=== PATIENT | female | born 1980 | race American Indian/Alaskan Native ===

== ENCOUNTER 2020-10-06 15:56 | Emergency (ER) | payer SELFPAY ==
--- NOTE | 2020-10-06 17:14 | Event Note ---
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 Further treatment and workup at subsequent clinical providers discretion. Patient/guardian urged not to elope from the ED as their condition may be serious if not clinically assessed and managed. Initial orders include: Lab
[2020-10-06 17:38] LABS: Alanine Aminotransferase 11 units/L (7-56); Albumin 3.5 g/dL (3.9-5); Blood Urea Nitrogen 5 mg/dL (7-17); Calcium 8.7 mg/dL (8.4-10.2); Hemolysis Index 61
[2020-10-06 17:48] LABS: Hematocrit 37.6 % (30.3-42.9); Hemoglobin 12.1 gm/dl (10.1-14.3); Mean Corpuscular HGB Conc 32 % (30-34); Mean Corpuscular Volume 86 fl (79-97); Platelet Count 309 K/mm3 (140-440); Red Blood Count 4.36 M/mm3 (3.65-5.03); Red Cell Distribution Width 15.4 % (13.2-15.2)
[2020-10-06 17:49] LABS: Basophils % (Auto) 0.5 % (0.0-1.8); Eosinophils % (Auto) 0.7 % (0.0-4.3); Lymphocytes # (Auto) 1.6 K/mm3 (1.2-5.4); Lymphocytes % (Auto) 19.5 % (13.4-35.0); Monocytes # (Auto) 0.6 K/mm3 (0.0-0.8)
[2020-10-06 17:50] LABS: BUN/Creatinine Ratio 10
[2020-10-06 17:50] LABS: Eosinophils # (Auto) 0.1 K/mm3 (0.0-0.4)
[2020-10-06 20:56] LABS: Bacteria,Urine 1+ /HPF (Negative); Bilirubin,Urine NEG (Negative); Blood,Urine NEG (Negative); Color,Urine Yellow (Yellow); Mucus,Urine FEW /HPF; Urobilinogen,Urine < 2.0 mg/dL (<2.0)
--- NOTE | 2020-10-06 22:30 | Emergency Department Report ---
HPI - General Chief Complaint: High BP Time Seen by Provider: 10/06/20 16:32 - HPI HPI: This is a 40-year-old female who presents to the emergency department with the complaint of hypertension while . Patient followed up with [facility] 2 weeks ago and was told that she was about 9 weeks at that time. She was given a follow-up appointment for today. When she went into the office she says that she was told that they do not see patients that are greater than 325 pounds. The patient says that she she got very upset and this is also when they checked her blood pressure in the office and it was found to be extremely elevated. She was told that it was "stroke level" and that she needs to go to the emergency department. When the patient came to the emergency department she [facility] and says that she waited there for a while before she was told that she needs to go back to the emergency department. The patient does have a history of hypertension for which she takes carvedilol 25 mg once per day. She also has a history of [id number] diabetes for which she takes Metformin 1000 mg twice daily. With this the patient is G3, P2. She denies any headache, fever, vision change, chest pain, shortness of breath, lower extremity swelling, abdominal or pelvic pain, vaginal bleeding, dysuria or discharge. ED Past Medical Hx - Past Medical History Previous Medical History?: Yes Hx Hypertension: Yes Hx Diabetes: Yes - Medications Home Medications: Home Medications Medication Instructions Recorded Confirmed Last Taken Type Nitrofurantoin [place]/M-Cryst 100 mg PO Q12HR #14 capsule 10/06/20 Unknown Rx [Macrobid CAP] ED Review of Systems ROS: Stated complaint: HIGH BLOOD PRESSURE Other details as noted in HPI Comment: All other systems reviewed and negative Constitutional: denies: chills, fever Eyes: denies: eye pain, vision change ENT: denies: ear pain, throat pain Respiratory: denies: cough, shortness of breath Cardiovascular: denies: chest pain, palpitations Gastrointestinal: denies: abdominal pain, vomiting Genitourinary: denies: dysuria, discharge Musculoskeletal: denies: back pain, arthralgia Skin: denies: rash, lesions Neurological: denies: headache, weakness Physical Exam - Physical Exam Vital Signs: Vital Signs 10/06/20 10/06/20 16:19 20:08 Temperature 97.8 F Pulse Rate 104 H 108 H Respiratory 18 20 Rate Blood Pressure 180/117 Blood Pressure 205/114 [Right] O2 Sat by Pulse 98 100 Oximetry Physical Exam: GENERAL: The patient is well-developed well-nourished. HENT: Normocephalic. Atraumatic. Patient has moist mucous membranes. EYES: Extraocular motions are intact. NECK: Supple. Trachea is midline. CHEST/LUNGS: Clear to auscultation. There is no respiratory distress noted. HEART/CARDIOVASCULAR: Regular. There is no tachycardia. There is no murmur. ABDOMEN: Abdomen is soft, nontender. Patient has normal bowel sounds. Morbidly obese habitus. SKIN: Skin is warm and dry. NEURO: The patient is awake, alert, and oriented. The patient is cooperative. The patient has no focal neurologic deficits. Normal speech. MUSCULOSKELETAL: There is no tenderness or deformity. There is no limitation range of motion. Pelvic: Deferred. ED Course Vital Signs 10/06/20 10/06/20 16:19 20:08 Temperature 97.8 F Pulse Rate 104 H 108 H Respiratory 18 20 Rate Blood Pressure 180/117 Blood Pressure 205/114 [Right] O2 Sat by Pulse 98 100 Oximetry - Reevaluation(s) Reevaluation #1: 10/06/20 23:32 After discussing the vital signs and laboratory results with the patient, as well as the plan for admission for blood pressure and diabetes control, the patient has decided to leave AGAINST MEDICAL ADVICE. She feels that the blood pressure is secondary to her frustration with how today has gone at the office of the TRANSPLANTER and the prolonged hospital evaluation. I discussed with the patient that the very elevated blood pressure levels, especially if they worsen, could lead to heart attack, stroke, loss of , or even permanent disability or . We also discussed that the hypertension and diabetes make her a very high risk . The patient is awake, alert, oriented and has a normal decision-making capacity. Despite understanding the risks of leaving AGAINST MEDICAL ADVICE, the patient has decided to leave AMA. She also understands that she can return to the emergency department at any time for reevaluation and should do so if she develops any chest pain, shortness of breat h, severe headache, weakness, or with any acute distress. I did a bedside ultrasound to look at the and there appears to be an intrauterine with a heart rate of 138 bpm and the fetus appears very active within the wound. The patient has been given a dose of Macrobid for her urinary tract infection and a dose of labetalol for the hypertension. - Consultations Consultation #1: 10/06/20 23:32 I spoke to the TRANSPLANTER on-call, Dr. Sandoval, who recommended admission for blood pressure control and optimization of the patient's hyperglycemia/diabetes. Since the patient is less than 20 weeks, and it is a nonviable currently, she is asked for the patient to be admitted to the hospitalist service and she is happy to consult. ED Medical Decision Making - Lab Data Result diagrams: 10/06/20 16:33 10/06/20 17:10 Lab Results 10/06/20 10/06/20 10/06/20 Range/Units 16:33 17:10 17:10 WBC 8.0 (4.5-11.0) K/mm3 RBC 4.36 (3.65-5.03) M/mm3 Hgb 12.1 (10.1-14.3) gm/dl Hct 37.6 (30.3-42.9) % MCV 86 (79-97) fl MCH 28 (28-32) pg MCHC 32 (30-34) % RDW 15.4 H (13.2-15.2) % Plt Count 309 (140-440) K/mm3 Lymph % (Auto) 19.5 (13.4-35.0) % [place] % (Auto) 7.0 (0.0-7.3) % Eos % (Auto) 0.7 (0.0-4.3) % Baso % (Auto) 0.5 (0.0-1.8) % Lymph # (Auto) 1.6 (1.2-5.4) K/mm3 [place] # (Auto) 0.6 (0.0-0.8) K/mm3 Eos # (Auto) 0.1 (0.0-0.4) K/mm3 Baso # (Auto) 0.0 (0.0-0.1) K/mm3 Seg Neutrophils % 72.3 H (40.0-70.0) % Seg Neutrophils # 5.8 (1.8-7.7) K/mm3 Sodium 132 L (137-145) mmol/L Potassium 4.3 (3.6-5.0) mmol/L Chloride 98.2 (98-107) mmol/L Carbon Dioxide 19 L (22-30) mmol/L Anion Gap 19 mmol/L BUN 5 L (7-17) mg/dL Creatinine 0.5 L (0.6-1.2) mg/dL Estimated GFR > 60 ml/min BUN/Creatinine Ratio 10 % Glucose 268 H (65-100) mg/dL Calcium 8.7 (8.4-10.2) mg/dL Total Bilirubin 0.40 (0.1-1.2) mg/dL AST 16 (5-40) units/L ALT 11 (7-56) units/L Alkaline Phosphatase 89 (35-129) units/L Total Protein 7.2 (6.3-8.2) g/dL Albumin 3.5 L (3.9-5) g/dL Albumin/Globulin Ratio 0.9 % HCG, Quant 09396 H (0-4) mIU/mL Urine Color (Yellow) Urine Turbidity (Clear) Urine pH (5.0-7.0) Ur Specific [place] (1.003-1.030) Urine Protein (Negative) mg/dL Urine Glucose (UA) (Negative) mg/dL Urine Ketones (Negative) mg/dL Urine Blood (Negative) Urine Nitrite (Negative) Urine Bilirubin (Negative) Urine Urobilinogen (<2.0) mg/dL Ur Leukocyte Esterase (Negative) Urine WBC (Auto) (0.0-6.0) /HPF Urine RBC (Auto) (0.0-6.0) /HPF U Epithel Cells (Auto) (0-13.0) /HPF Urine Bacteria (Auto) (Negative) /HPF Urine Mucus /HPF 10/06/20 Range/Units 20:30 WBC (4.5-11.0) K/mm3 RBC (3.65-5.03) M/mm3 Hgb (10.1-14.3) gm/dl Hct (30.3-42.9) % MCV (79-97) fl MCH (28-32) pg MCHC (30-34) % RDW (13.2-15.2) % Plt Count (140-440) K/mm3 Lymph % (Auto) (13.4-35.0) % Loving % (Auto) (0.0-7.3) % Eos % (Auto) (0.0-4.3) % Baso % (Auto) (0.0-1.8) % Lymph # (Auto) (1.2-5.4) K/mm3 Loving # (Auto) (0.0-0.8) K/mm3 Eos # (Auto) (0.0-0.4) K/mm3 Baso # (Auto) (0.0-0.1) K/mm3 Seg Neutrophils % (40.0-70.0) % Seg Neutrophils # (1.8-7.7) K/mm3 Sodium (137-145) mmol/L Potassium (3.6-5.0) mmol/L Chloride (98-107) mmol/L Carbon Dioxide (22-30) mmol/L Anion Gap mmol/L BUN (7-17) mg/dL Creatinine (0.6-1.2) mg/dL Estimated GFR ml/min BUN/Creatinine Ratio % Glucose (65-100) mg/dL Calcium (8.4-10.2) mg/dL Total Bilirubin (0.1-1.2) mg/dL AST (5-40) units/L ALT (7-56) units/L Alkaline Phosphatase (35-129) units/L Total Protein (6.3-8.2) g/dL Albumin (3.9-5) g/dL Albumin/Globulin Ratio % HCG, Quant (0-4) mIU/mL Urine Color Yellow (Yellow) Urine Turbidity Cloudy (Clear) Urine pH 6.0 (5.0-7.0) Ur Specific Mears 1.042 H (1.003-1.030) Urine Protein 30 mg/dl (Negative) mg/dL Urine Glucose (UA) >=500 (Negative) mg/dL Urine Ketones 80 (Negative) mg/dL Urine Blood Neg (Negative) Urine Nitrite Pos (Negative) Urine Bilirubin Neg (Negative) Urine Urobilinogen < 2.0 (<2.0) mg/dL Ur Leukocyte Esterase Mod (Negative) Urine WBC (Auto) 30.0 H (0.0-6.0) /HPF Urine RBC (Auto) 13.0 (0.0-6.0) /HPF U Epithel Cells (Auto) 28.0 H (0-13.0) /HPF Urine Bacteria (Auto) 1+ (Negative) /HPF Urine Mucus Few /HPF - Medical Decision Making This patient was sent in by [facility] after she was found to have a very elevated blood pressure during her visit this afternoon. The patient does have a history of hypertension and diabetes and is currently about 11 weeks . The patient's blood work shows some hyperglycemia without signs of diabetic ketoacidosis. There is no elevation in her anion gap. While there is some ketonuria, there is no proteinuria. The patient also has a mild urinary tract infection. I spoke to the TRANSPLANTER on-call, as per the consultation section, and the recommendation was for the patient to be admitted to the hospital for blood pressure control and optimization of her diabetes. However, the patient feels that the hypertension is so elevated secondary to her frustration with her visit to [facility] and her hospital course and that it will be better controlled if she goes home, calms down, and rests. As mentioned in the reevaluation section, the patient has decided to leave AGAINST MEDICAL ADVICE despite understanding the risks of doing so with her hypertensive urgency, hyperglycemia, and this high risk . Before the patient left, I did a bedside ultrasound that shows a live intrauterine with a heart rate of about 138. The patient was given a dose of labetalol and a dose of Macrobid. Despite the fact that the patient is leaving [place], I did give her some discharge instructions and a prescription for Macrobid to treat the urinary tract infection. She understands that she can return to the emergency department at any time for reevaluation or if she changes her mind regarding admission and further treatment, or with any acute distress. Critical Care Time: No Critical care attestation.: If time is entered above; I have spent that time in minutes in the direct care of this critically ill patient, excluding procedure time. ED Disposition Clinical Impression: Hypertension affecting in first trimester, Hyperglycemia Qualifiers: Weeks of gestation: 11 weeks Qualified Code(s): Z3A.11 - 11 weeks gestation of UTI (urinary tract infection) Qualifiers: Urinary tract infection type: acute cystitis Hematuria presence: without hematuria Qualified Code(s): N30.00 - Acute cystitis without hematuria Disposition: DC-07 LEFT AGAINST MED ADVICE Is pt being admited?: No Condition: Stable Instructions: Hyperglycemia, Urinary Tract Infection, Adult, Blood Glucose Monitoring, Adult, Hypertension During , Hypertension (ED) Additional Instructions: Please return to the emergency department immediately if you change your mind about admission and further evaluation/treatment. Try to stay away from foods that are high in sugar, carbohydrates and starches. Keep a blood sugar log. Try to stay away from foods that are high in salt and caffeinated products. Keep a blood pressure log. Prescriptions: Nitrofurantoin [place]/M-Cryst [Macrobid CAP] 100 mg PO Q12HR #14 capsule [address]errals: [facility] [Provider Group] - [facility]Provider [facility] - [facility] [Provider Group] - [facility] Forms: AMA Form Time of Disposition: 23:20
[2020-10-06] MEDS ORDERED: NITROFURANTOIN MONOHYD/M-CRYST 100 MG CAP PO ONE (23:17)
[2020-10-06 23:29] VITALS: BP 160/89
== END 2020-10-06 23:33 | disposition left against medical advice (07) ==
LOC: ED 15:56
DX: O24.419 Gestational diabetes mellitus in pregnancy, unspecified control (principal); O13.1 Gestational [pregnancy-induced] hypertension without significant proteinuria, first trimester; O23.41 Unspecified infection of urinary tract in pregnancy, first trimester; Z79.899 Other long term (current) drug therapy; Z3A.11 11 weeks gestation of pregnancy
CPT/HCPCS: 36415; 80053; 81001; 84702; 85025; 87086

== ENCOUNTER 2020-11-23 12:17 | Inpatient (IN) | payer MEDICAID ==
[2020-11-23] MEDS ORDERED: FAMOTIDINE 20 MG/2 ML INJ IV ONE ×2 (12:29→19:16)
[2020-11-23] MEDS ORDERED: METOCLOPRAMIDE 10 MG/2 ML INJ IV ONE (12:29)
[2020-11-23] MEDS ORDERED: BICITRA ORAL LIQD 30ML PO ONE (12:29)
[2020-11-23] MEDS ORDERED: LACTATED RINGERS 1,000 ML IV SCH ×3 (12:30→21:30)
[2020-11-23] MEDS ORDERED: ceFAZolin/Water 2 GM/20 ML 2 GM/20 ML SYRINGE IV NR (13:00)
[2020-11-23] MEDS ORDERED: OXYTOCIN DRIP 30 UNITS/500 ML BAG IV SCH ×2 (13:00→22:00)
[2020-11-23] MEDS ORDERED: MAGNESIUM SULFATE 4 GM/100 ML BAG IV ONE (13:46)
[2020-11-23] MEDS ORDERED: hydrALAZINE 20 MG/1 ML INJ IV ONE ×2 (13:46→17:19)
[2020-11-23] MEDS ORDERED: hydrALAZINE 20 MG/1 ML INJ ONE ×2 (13:50→17:19)
--- NOTE | 2020-11-23 13:53 | Ultrasound Report ---
Limited OB ultrasound INDICATION: Evaluate for heart tones, well-being FINDINGS: Clinical dates 37 weeks 5 days. No heart tone is identified. IMPRESSION: No heart tone is identified. Note: Patient's nurse tax analyst was present for the study. Signer Name: Darius Salmon MD Signed: 11/23/2020 1:49 PM Workstation Name: [id number]
[2020-11-23 14:36] LABS: Basophils % (Auto) 0.4 % (0.0-1.8); Eosinophils % (Auto) 0.4 % (0.0-4.3); Hematocrit 37.9 % (30.3-42.9); Hemoglobin 12.5 gm/dl (10.1-14.3); Lymphocytes # (Auto) 1.4 K/mm3 (1.2-5.4); Lymphocytes % (Auto) 19.7 % (13.4-35.0); Mean Corpuscular HGB Conc 33 % (30-34); Mean Corpuscular Volume 84 fl (79-97); Monocytes # (Auto) 0.5 K/mm3 (0.0-0.8); Monocytes % (Auto) 7.5 % (0.0-7.3); Platelet Count 319 K/mm3 (140-440); Red Cell Distribution Width 15.4 % (13.2-15.2)
[2020-11-23] MEDS: LACTATED RINGERS 1,000 ML IV SCH (14:37)
[2020-11-23 14:48] LABS: Alanine Aminotransferase 30 units/L (7-56); Albumin 3.8 g/dL (3.9-5); Blood Urea Nitrogen 5 mg/dL (7-17); Calcium 9.8 mg/dL (8.4-10.2); Hemolysis Index 84
[2020-11-23 14:55] LABS: BUN/Creatinine Ratio 13; Bilirubin,Direct < 0.2 mg/dL (0-0.2)
[2020-11-23] MEDS: MAGNESIUM SULFATE 40GM/1000ML 40 GM/1,000 ML BAG IV SCH (15:10)
[2020-11-23] MEDS ORDERED: DEXTROSE 50% IN WATER (25GM) 50 ML SYRINGE IV PRN (16:00)
[2020-11-23] MEDS ORDERED: INSULIN REGULAR, HUMAN 100 UNITS/1 ML SUB-Q SCH (16:00)
[2020-11-23 16:41] LABS: INR 0.96 (0.87-1.13); Partial Thromboplastin Time 26.2 Sec. (24.2-36.6)
[2020-11-23 17:39] LABS: Amphetamine Screen,Urine PRESUMPTIVE NEGATIVE; Benzodiazepines Screen,Urine PRESUMPTIVE NEGATIVE; Bilirubin,Urine NEG (Negative); Blood,Urine SM (Negative); Cannabinoid Screen,Urine PRESUMPTIVE NEGATIVE; Cocaine Screen,Urine PRESUMPTIVE NEGATIVE; Color,Urine Yellow (Yellow); Methadone Screen,Urine PRESUMPTIVE NEGATIVE; Mucus,Urine FEW /HPF; Opiate Screen,Urine PRESUMPTIVE NEGATIVE; Protein,Urine <15 mg/dL mg/dL (Negative); RBC,Urine < 1.0 /HPF (0.0-6.0); Urobilinogen,Urine < 2.0 mg/dL (<2.0); WBC,Urine < 1.0 /HPF (0.0-6.0)
[2020-11-23] MEDS ORDERED: INSULIN REGULAR, HUMAN 100 UNITS/1 ML IV ONE (18:42)
--- NOTE | 2020-11-23 18:54 | History and Physical Report ---
History of Present Illness Date of examination: 11/23/20 Date of admission: 11/23/20 12:17 Chief complaint: demise History of present illness: This is a 40-year-old female 3 para 2-0-0-2 who presented to the office for routine OB visit. During the visit patient stated perinatologist recommended delivery at [address] Vanegas was consulted and confirmed that patient needed to be delivered today due to noncompliance. On arrival to triage heart tones were unable to be clearly documented. Ultrasound was performed and confirmed demise cephalic position. Past History Past Medical History: hypertension, diabetes, other (Heart murmur. 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 denies: abnormal PAP smear Social history: full code. denies: smoking, alcohol abuse, prescription drug a buse, IV drug use - Obstetrical History Expected Date of Delivery: 12/09/20 Actual Gestation: 37 Week(s) 5 Day(s) : 3 Para: 2 Hx # Term Pregnancies: 2 Number of Living Children: 2 Medications and Allergies Allergies Allergy/AdvReac Type Severity Reaction Status Date / Time No Known Allergies Allergy Verified 11/23/20 12:51 Home Medications Medication Instructions Recorded Confirmed Last Taken Type Nitrofurantoin [place]/M-Cryst 100 mg PO Q12HR #14 capsule 10/06/20 Unknown Rx [Macrobid CAP] Active Meds: Active Medications Dextrose (Dextrose 50% In Water (25gm) 50 Ml Syringe) 50 ml IV Q30MIN PRN; Pro tocol PRN Reason: Hypoglycemia Oxytocin/Sodium Chloride (Pitocin/Ns 30 Unit/500ml) 30 units in 500 mls @ 0 mls/hr IV TITR ELDA; Protocol Cefazolin Sodium (Ancef/Sterile Water 2 Gm/20 Ml) 2 gm in 20 mls @ 80 mls/hr IV PREOP NR; Protocol Stop: 11/23/20 23:59 Lactated Ringer's (Lactated Ringers) 1,000 mls @ 125 mls/hr IV DIRECT ELDA Last Admin: 11/23/20 14:37 Dose: 125 mls/hr Documented by: Magnesium Sulfate (Magnesium Sulfate 40gm/1000ml) 40 gm in 1,000 mls @ 50 mls/hr IV DIRECT ELDA Last Admin: 11/23/20 15:10 Dose: 2 gm/hr, 50 mls/hr Documented by: Insulin Human Regular (Insulin Regular, Human 100 Units/1 Ml) 0 units SUB-Q Q6H ELDA; Protocol Labetalol HCl (Labetalol 100 Mg Tab) 300 mg PO BID ELDA Review of Systems All systems: negative - Vital Signs Vital signs: Vital Signs Temp Pulse Resp BP Pulse Ox 98.2 F 125 H 20 174/89 94 11/23/20 13:04 11/23/20 13:04 11/23/20 13:04 11/23/20 13:04 11/23/20 13:04 Temp Pulse Resp BP Pulse Ox 98.2 F 136 H 18 143/88 99 11/23/20 13:04 11/23/20 18:17 11/23/20 15:00 11/23/20 18:17 11/23/20 15:00 - Physical Exam Breasts: Positive: deferred Cardiovascular: Other (Tachycardia) Lungs: Positive: Normal air movement Abdomen: Positive: other (Obese) Genitourinary (Female): Positive: normal external genitalia, normal perenium Uterus: Positive: other (Unable to assess due to body habitus) Extremities: Positive: normal - Obstetrical Cervical Dilatation: 0 Cervical Effacement Percentage: 0 station: -4 per Darcie Irvin CNM patient could not tolerate exam when I attempte Results Result Diagrams: 11/23/20 13:30 11/23/20 13:30 Abnormal lab results 11/23/20 11/23/20 11/23/20 Range/Units 13:30 13:30 13:30 RDW 15.4 H (13.2-15.2) % [place] % (Auto) 7.5 H (0.0-7.3) % Seg Neutrophils % 72.0 H (40.0-70.0) % Sodium 128 L (137-145) mmol/L Chloride 92.3 L (98-107) mmol/L Carbon Dioxide 21 L (22-30) mmol/L BUN 5 L (7-17) mg/dL Creatinine 0.4 L (0.6-1.2) mg/dL Glucose 307 H (65-100) mg/dL Hemoglobin A1c 10.4 H (4-6) % Albumin 3.8 L (3.9-5) g/dL All other labs normal. Assessment and Plan - Patient Problems (1) 37 weeks gestation of Current Visit: Yes Status: Acute (2) Body mass index 50.0-59.9, adult Current Visit: Yes Status: Chronic (3) Diabetes type 2, uncontrolled Onset Date: ~11/23/20 Current Visit: Yes Status: Chronic (4) Essential hypertension affecting in third trimester Onset Date: ~11/23/20 Current Visit: Yes Status: Chronic (5) demise Onset Date: ~11/23/20 Current Visit: Yes Status: Acute (6) Noncompliant patient in third trimester Current Visit: Yes Status: Chronic (7) Previous section Onset Date: ~11/23/20 Current Visit: Yes Status: Chronic Plan to address problem: Options for delivery were discussed with patient. Limited data available for guidance concerning previous with unknown uetrine incision, unfavorable cervix and induction of labor. She was informed of possible risk of uterine rupture with trial of labor. She was also informed with unfavorable cervix, mechanical induction and Pitocin will be required and induction of labor may take several days to delivery and her risk would be further increased for possible uterine rupture with poor prognosis and possible for her. She's aware should uterine rupture occur she will require hysterectomy to save her life. Risk associated with delivery were discussed, including but not limited to, bleeding that may require blood transfusion, infection that may be life threatening, injury to adjacent organs specifically bowel or bladder that may require further surgeries, or major vascular injury. She was also informed that when she has had a delivery she may require repeat deliveries for all subsequent pregnancies. Questions were encouraged and answered, consents were reviewed and signed. Patient voiced understanding and desires to proceed with delivery.
[2020-11-23] MEDS ORDERED: MIDAZOLAM 2 MG/2 ML INJ ONE (19:07)
[2020-11-23] MEDS ORDERED: ONDANSETRON 4 MG/2 ML INJ ONE (19:07)
[2020-11-23] MEDS ORDERED: fentaNYL 100 MCG/2 ML INJ ONE (19:08)
--- NOTE | 2020-11-23 19:12 | Anesthesia Consultation ---
Anesthesia Consult and Med Hx Date of service: 11/23/20 - Airway Anesthetic Teeth Evaluation: Good ROM Head & Neck: Adequate Mental/Hyoid Distance: Adequate Mallampati Class: Class IV Intubation Access Assessment: Possibly Difficult - Pulmonary Exam CTA: Yes - Cardiac Exam Cardiac Exam: RRR - Pre-Operative Health Status ASA Pre-Surgery Classification: ASA3 Proposed Anesthetic Plan: Epidural, Spinal - Pulmonary Hx Smoking: No Hx Asthma: No Hx Sleep Apnea: No - Cardiovascular System Hx Hypertension: Yes Hx Heart Attack/AMI: No Hx Angina: No - Central Nervous System Hx Seizures: No Hx Psychiatric Problems: No - Gastrointestinal Hx Gastroesophageal Reflux Disease: No - Endocrine Hx Renal Disease: No Hx Insulin Dependent Diabetes: Yes (BG 300) Hx Hypothyroidism: No Hx Hyperthyroidism: No - Hematic Hx Anemia: No Hx Sickle Cell Disease: No - Other Systems Hx Alcohol Use: No Hx Obesity: Yes
[2020-11-23] MEDS ORDERED: ONDANSETRON 4 MG/2 ML INJ IV PRN (19:13)
[2020-11-23] MEDS ORDERED: diphenhydrAMINE 50 MG/ML VIAL IV PRN (19:13)
[2020-11-23] MEDS ORDERED: NALOXONE 0.4 MG/1 ML INJ IV PRN ×2 (19:13→21:26)
[2020-11-23] MEDS ORDERED: PROMETHAZINE 25 MG RECT SUPP PR PRN (19:13)
[2020-11-23] MEDS ORDERED: NalbUPHINE 10 MG/1 ML INJ IV PRN (19:13)
[2020-11-23] MEDS ORDERED: PROMETHAZINE 25 MG TAB PO PRN (19:13)
[2020-11-23] MEDS ORDERED: HYDROmorphone 1 MG/1 ML INJ IV PRN (19:13)
--- NOTE | 2020-11-23 19:13 | Anesthesia Day of Surgery ---
Anesthesia Day of Surgery - Day of Surgery Patient Examined: Yes Patient H&P Reviewed: Yes Patient is NPO: Yes Beta Blockers: No Cardiac Clearance: No Pulmonary Clearance: No Rainer's Test: N/A
[2020-11-23] MEDS ORDERED: BICITRA ORAL LIQD 30ML ONE (19:15)
[2020-11-23] MEDS ORDERED: METOCLOPRAMIDE 10 MG/2 ML INJ ONE (19:15)
[2020-11-23] MEDS ORDERED: DIPHENOXYLATE/ATROPINE TAB PO PRN (19:37)
[2020-11-23] MEDS ORDERED: miSOPROStol 200 MCG TAB PR PRN (19:37)
[2020-11-23] MEDS ORDERED: CARBOPROST TROMETHAMINE 250 MCG/1 ML INJ IM PRN (19:37)
[2020-11-23] MEDS ORDERED: ceFAZolin 1 GM VIAL ONE (19:45)
[2020-11-23] MEDS ORDERED: MORPHINE PF 10MG/10 ML AMPULE ONE (19:46)
[2020-11-23] MEDS ORDERED: MINERAL OIL/PETROLATUM, WHITE OPHTH OINT 3.5 GM ONE (20:22)
[2020-11-23] MEDS ORDERED: LIDOCAINE 2%/EPINEPHRINE 1:200,000 VIAL (20 ML) INFILTRATI ONE (20:22)
[2020-11-23] MEDS ORDERED: ceFAZolin/STERILE WATER 2 GM/20 ML SYRINGE IV ONE (20:30)
--- NOTE | 2020-11-23 20:32 | Progress Note ---
Labor Epidural - Labor Epidural Start Time: 19:43 Stop Time: 20:05 Performed by:: KATARZYNA ARIAS ([facility]) Procedure: Combined spinal epidural is being performed for [C/S]. H&P, labs were reviewed. All questions and concerns were answered. Informed consent was obtained. Timeout performed. Patient in sitting position on side of OR table. Sterile prep and drape was performed. 3 mL 1% lidocaine skin wheal at L [3]-L [4]. 18-gauge Tuohy epidural needle advanced to [id number] using air technique, [9]. 27-gauge spinal needle advanced, positive free-flowing CSF. Spinal dose of [Marcaine 7.5mg]. Epidural catheter advanced to [15] cm. [negative] Aspiration, [negative] test dose. Sterile dressing applied. Patient tolerated procedure well.
[2020-11-23] MEDS ORDERED: PHENYLEPHRINE/NS 1,000 MCG/10 ML SYRINGE (OR USE) IV ONE ×2 (20:57)
[2020-11-23] MEDS ORDERED: WITCH HAZEL/ GLYCERIN PAD TP PRN (21:26)
[2020-11-23] MEDS ORDERED: ACETAMINOPHEN 500 MG TAB PO PRN (21:29)
[2020-11-23] MEDS ORDERED: MORPHINE 2 MG/1 ML INJ IV PRN (21:29)
[2020-11-23] MEDS ORDERED: SIMETHICONE 80 MG CHEW TAB PO PRN (21:29)
[2020-11-23] MEDS ORDERED: SENNOSIDES 8.6 MG TAB PO PRN (21:29)
[2020-11-23] MEDS ORDERED: MAGNESIUM HYDROXIDE (MOM) ORAL LIQD UDC PO PRN (21:29)
[2020-11-23] MEDS ORDERED: LACTATED RINGERS 1,000 ML ONE (21:30)
--- NOTE | 2020-11-23 21:49 | Operative Report ---
Operative Report Operative Report: Date of operation: 11/23/2020 Pre-operative diagnosis: 1. 37 5/7 weeks gestational age 2. Intrauterine demise 3. Uncontrolled gestational diabetic 4. BMI 54.7 kg/m 5. Essential hypertension with superimposed preeclampsia 6. Previous delivery with unknown uterine incision Post-operative diagnosis: 1. 37 5/7 weeks gestational age 2. Intrauterine demise 3. Uncontrolled gestational diabetic 4. BMI 54.7 kg/m 5. Essential hypertension with superimposed preeclampsia 6. Previous delivery with unknown uterine incision 7. Pelvic adhesions Procedure name(s): Primary low transverse uterine incision Lysis of adhesion Surgeon: Liliane Harley MD Concrete Block Mason: Isadora Yo Anesthesia: Combined spinal epidural EBL: 1000 mL Urine output: 75 mL of clear urine out at the end of the procedure Fluids: 1200 mL Findings: Nonviable male infant weight 8 Lbs. 6 oz. Apgars of 0 and 0 at one and 5 minutes. Sloughing of skin was noted on the right posterior shoulder Indications: [] Procedure: Patient was taking to the operating room. Combined spinal epidural anesthesia was placed. Patient was then prepped and draped in the usual sterile fashion Timeout was performed. Once an appropriate level of anesthesia was noted, a Pfannenstiel incision was made and extended the fascia which was incised and extended lateral direction. The overlying fascia was sharply dissected away from the underlying rectus muscles in the superior inferior direction. The midline was entered bluntly. Bladder blade was placed. Vesicouterine fold was incised with blunt dissection bladder flap was created. A transverse incision was made in the lower uterine segment and extended superolateral direction with finger fractionation. Copious clear fluid was noted. Infant was delivered from the cephalic position. Cord was doubly clamped and cut. Placenta was delivered. The uterus was exteriorized and cleaned of any further placental tissue and products of conception. Uterine incision was approximated using 0 Vicryl in a running interlocking stitch followed by further suture of 0 Vicryl in imbricating fashion. Omental adhesions were noted on the anterior aspect of the uterus that were lysed and cauterized. When hemostasis was noted the uterus was allowed back in the pelvic cavity. Pelvis was irrigated with warm normal saline. Surgicel was placed on the incision to ensure hemostasis. Once hemostasis was noted the fascia was approximated using 0 Vicryl simple running stitch. The incision was irrigated with warm saline, once hemostasis as noted, the subcuticular adipose tissue was reapproximated using 0 Vicryl in a simple running fashion. Skin was approximated using 3-0 Monocryl on a Jordi needle in a subcuticular manner. Counts were correct x3. Patient tolerated the procedure well, she was taken to recovery room in stable condition.
[2020-11-24] MEDS ORDERED: INSULIN GLARGINE 100 UNITS/ML SUB-Q ONE (00:31)
[2020-11-24] MEDS ORDERED: INSULIN LISPRO 100 UNIT/ML SUB-Q ONE (00:35)
[2020-11-24] MEDS: INSULIN LISPRO 100 UNIT/ML SUB-Q SCH ×5 (00:43→22:28)
[2020-11-24] MEDS ORDERED: ceFAZolin/NS 1 GM/50 ML 1 GM/50 ML BAG IV SCH (02:00)
[2020-11-24] MEDS ORDERED: IBUPROFEN 800 MG TAB PO PRN ×2 (02:11→21:29)
[2020-11-24] MEDS: KETOROLAC 30 MG/1 ML INJ IV PRN ×3 (02:31→15:49)
[2020-11-24] MEDS: LACTATED RINGERS 1,000 ML IV SCH (05:15)
--- NOTE | 2020-11-24 05:29 | History and Physical Report ---
History of Present Illness Date of examination: 11/23/20 (Pt sent to Triage for c/s due to noncompliant with care) Date of admission: 11/23/20 12:17 Chief complaint: Chief Complaint / Current Status: pt. presents for OB f/u; c/o back pain and contrations. Pt. mentioned that the specialists recommended that we schedule her this week instead of next week. Mask, covid19 .............. .......................................................Sridhar Donws November 23, 2020 11:39 AM MA was trying to place pt on EFM for NST I called Dr Vanegas She recommends I send pt right now to L&D for delivery. She states pt has been noncompliant with her diabetic f/u. Dr Vanegas made aware pt had failed to complete her 24hr urine also. Once I went back into the exam room several staff members where trying to find the FHTs, were unsuccessful. Stopped the NST sent pt directly to the hospital. I was very firm that she should go right now. Pt voiced understanding and agreement. She does report FM What appeared to be FHR dopplered in 114 in LUQ with FM by myself. L&D called. Dr Harley made aware. ...................................................................Darcie Irvin CNM November 23, 2020 12:16 PM History of present illness: EDC Confirmation: 12/09/2020 Gestational Age: 38 weeks Past History : 3 Term Births: 2 Premature Births: 0 Living Children: 2 Para: 2 Mult. Births: 0 Prev : 1 Prev. attempt? success x1 Aborta: 0 Elect. Ab: 0 Spont. Ab: 0 Ectopics: 0 # 1 Delivery date: 1994 Weeks Gestation: 40 labor: no Delivery type: Anesthesia type: general [facility] Sex: Male weight: 7lb 8oz Name: "Abdias" Comments: "both of us were losing oxygen; I can't really remember why"; no complications # 2 Delivery date: 1997 Weeks Gestation: 40 labor: no Delivery type: Hours of labor: 5 min Anesthesia type: none Delivery location: @home Sex: Female weight: 8lbs 7oz Name: "Mary" Comments: precipitous delivery; "I woke up because my water broke, and the baby's head was right there"; denies complications Past Medical History: Heart murmur @; resolved Diabetes since 2009, on Metformin currently Hypertension since 2009, on Labetalol now Past Surgical History: 1993 Denies any prior history of complications from anesthesia. Denies any history of surgical complications. Past Medical History Anesthesia Complications: negative Anemia: negative Autoimmune Disorder: negative Bleeding Disorder: negative Blood Transfusions: negative Breast Disease: negative Diabetes: negative Heart Disease: negative Hypertension: negative Hepatitis/Liver Disease: negative Kidney Disease/UTI: negative Neurologic/Epilepsy/Migraines: negative Phlebitis/Varicosities: negative Psychiatric: negative Pulmonary Disease/Asthma: negative Thyroid Disease: negative Hospitalizations: negative Surgery (Non-polymerization helper): 1993 Denies any prior history of complications from anesthesia. Denies any history of surgical complications. Abnormal PAP: negative TIFFANIE Exposure: negative Infertility: negative Uterine Anomaly: negative Uterine Surgery (not C/S): negative Other Gynecologic Problems: negative Infection History Hx of STD: none HIV Risk Eval: low risk Hepatitis B Risk Eval: low risk Personal hx. of genital herpes: no Partner hx. of genital herpes: no Rash, Viral, or Febrile illness since last LMP? no Varicella/Chicken Pox Status: Previous Disease TB Risk: no Genetic History ADVANCED MATERNAL AGE Congenital Heart Defect: Mom: no Dad: no Albert Disease: Mom: no Dad: no Thalassemia Mom: no Dad: no Neural Tube Defect Mom: no Dad: no Down's Syndrome Mom: no Dad: no Corwin-Sachs Mom: no Dad: no Sickle Cell Disease/Trait Mom: no Dad: no Hemophilia Mom: no Dad: no Muscular Dystrophy Mom: no Dad: no Cystic Fibrosis Mom: no Dad: no [place] Chorea Mom: no Dad: no Mental Retardation Mom: no Dad: no Fragile X Mom: no Dad: no Other Genetic/Chromosomal Disorder Mom: no Dad: no Child w/other defect Mom: no Dad: no Enviromental Exposures Enviromental Exposures Reviewed Xray Exposure: no Medication, drug, or alcohol use since LMP: no Chemical/Other Exposure: no Exposure to Cat Liter: no Hx of Parvovirus (Fifth Disease): no Occupational Exposure to Children: none Current Allergies (reviewed today): No known allergies Current Medications (including medications started today): METFORMIN HCL TABLET (METFORMIN HCL TABS) Past History Past Medical History: hypertension, diabetes Past Surgical History: section - Obstetrical History Expected Date of Delivery: 12/09/20 Actual Gestation: 37 Week(s) 6 Day(s) : 3 Para: 2 (c/s x1 X 1) Hx # Term Pregnancies: 2 Number of Pregnancies: 0 Spontaneous Abortions: 0 Induced : 0 Number of Living Children: 1 Medications and Allergies Allergies Allergy/AdvReac Type Severity Reaction Status Date / Time No Known Allergies Allergy Verified 11/23/20 12:51 Home Medications Medication Instructions Recorded Confirmed Last Taken Type Nitrofurantoin Yellow Medicine/M-Cryst 100 mg PO Q12HR #14 capsule 10/06/20 Unknown Rx [Macrobid CAP] Ibuprofen [Motrin 800 MG tab] 800 mg PO TID PRN #30 tablet 11/23/20 Unknown Rx oxyCODONE /ACETAMINOPHEN [Percocet 1 - 2 tab PO Q6HR PRN #20 tablet 11/23/20 Unknown Rx 5/325 mg] Active Meds: Active Medications Lactated Ringer's (Lactated Ringers) 1,000 mls @ 2,250 mls/hr IV PREOP ELDA Stop: 11/24/20 12:57 Oxytocin/Sodium Chloride (Pitocin/Ns 30 Unit/500ml) 30 units in 500 mls @ 0 mls/hr IV TITR ELDA; Protocol Lactated Ringer's (Lactated Ringers) 1,000 mls @ 125 mls/hr IV DIRECT ELDA Cefazolin Sodium (Ancef/Sterile Water 2 Gm/20 Ml) 2 gm in 20 mls @ 80 mls/hr IV PREOP NR; Protocol Stop: 11/23/20 23:59 Review of Systems All systems: negative - Physical Exam Breasts: Positive: deferred Cardiovascular: Regular rate, Normal S1, Normal S2 Lungs: Positive: Normal air movement Abdomen: Positive: normal appearance, soft, normal bowel sounds. Negative: distention, tenderness Genitourinary (Female): Positive: other (VVC+ by clinical evaluation Thick cottage cheese d/c) Vulva: both: normal Vagina: Positive: normal moisture. Negative: discharge Cervix: Negative: lesion, discharge Uterus: Positive: normal size, normal contour Adnexa: both: normal Anus/Rectum: Positive: normal perianal skin, heme negative. Negative: rectal mass, hemorrhoids Extremities: Positive: edema Deep Tendon Reflex Grade: Normal +2 - Obstetrical FHR: other (demise) Cervical Dilatation: 0 Cervical Effacement Percentage: 0 station: -5 Results Result Diagrams: 11/23/20 13:30 11/23/20 13:30 All other labs normal. HBsAg Screen Negative Negative *1 RPR Non Reactive Non Reactive *2 Rubella Antibodies, IgG 4.32 index Immune >0.99 *3 Non-immune <0.90 Equivocal 0.90 - 0.99 Immune >0.99 ABO Grouping B *4 Rh Factor Positive *5 Please note: Prior records for this patient's ABO / Rh type are not available for additional verification. Antibody Screen Negative Negative *6 WBC 5.9 x10E3/uL 3.4-10.8 *7 RBC 4.48 x10E6/uL 3.77-5.28 *8 Hemoglobin 12.2 g/dL 11.1-15.9 *9 Hematocrit 38.1 % 34.0-46.6 *10 MCV 85 fL 79-97 *11 MCH 27.2 pg 26.6-33.0 *12 MCHC 32.0 g/dL 31.5-35.7 *13 RDW 14.4 % 11.7-15.4 *14 Platelets 269 x10E3/uL 150-450 *15 Neutrophils 72 % Not Estab. *16 Lymphs 19 % Not Estab. *17 Monocytes 8 % Not Estab. *18 Eos 1 % Not Estab. *19 Basos 0 % Not Estab. *20 ! Immature Cells <No Reported Value> *21 Neutrophils (Absolute) 4.3 x10E3/uL 1.4-7.0 *22 Lymphs (Absolute) 1.1 x10E3/uL 0.7-3.1 *23 Monocytes(Absolute) 0.4 x10E3/uL 0.1-0.9 *24 Eos (Absolute) 0.0 x10E3/uL 0.0-0.4 *25 Baso (Absolute) 0.0 x10E3/uL 0.0-0.2 *26 ! Immature Granulocytes 0 % Not Estab. *27 ! Immature Grans (Abs) 0.0 x10E3/uL 0.0-0.1 *28 ! NRBC <No Reported Value> *29 Hematology Comments: <No Reported Value> *30 Tests: (2) Hemoglobin A1c (342680) ! Hemoglobin A1c [H] 11.2 % 4.8-5.6 *31 Prediabetes: 5.7 - 6.4 Diabetes: >6.4 Glycemic control for adults with diabetes: <7.0 Tests: (3) HB Solu + Rflx Frac (522333) Hemoglobin (Hgb) Solubility Negative Negative *32 Tests: (4) HIV Ag/Ab with Reflex ([id number]) HIV Screen 4th Generation wRfx Non Reactive Non Reactive *33 Tests: (5) HCV Ab w/Rflx to Verification ([id number]) ! HCV Ab <0.1 s/co ratio 0.0-0.9 *34 Tests: (6) Comment: ([id number]) ! Comment: SPRCS *35 Non reactive HCV antibody screen is consistent with no HCV infection, unless recent infection is suspected or other evidence exists to indicate HCV infection. Tests: (7) Urine Culture, Routine ([id number]) Urine Culture, Routine [A] Final report *36 Tests: (8) Result ([id number]) ! Result 1 [A] "Result Below..." *37 RESULT: Klebsiella pneumoniae Greater than 100,000 colony forming units per mL Cefazolin <=4 ug/mL Cefazolin with an SAVANA <=16 predicts susceptibility to the oral agents cefaclor, cefdinir, cefpodoxime, cefprozil, cefuroxime, cephalexin, and loracarbef when used for therapy of uncomplicated urinary tract infections due to E. coli, Klebsiella pneumoniae, and Proteus mirabilis. Assessment and Plan 40yo @ 37w with demise Severe PreE Uncontrolled Type [address] Harley aware All orders in EMR - Patient Problems (1) demise Onset Date: ~11/23/20 Current Visit: Yes Status: Acute Plan to address problem: unable to do NST in office In Triage FM was recording HR 120 which was maternal Official US done No cardiac activity Family aware Dr Harley notified (2) Essential hypertension affecting in third trimester Onset Date: ~11/23/20 Current Visit: Yes Status: Chronic Plan to address problem: PreE MGSO4 started Apresoline 10mg given IV BP 200/107 Pt c/o CROW (3) Diabetes type 2, uncontrolled Onset Date: ~11/23/20 Current Visit: Yes Status: Chronic Plan to address problem: Random glucose 300+ SSI ordered (4) Previous section Onset Date: ~11/23/20 Current Visit: Yes Status: Chronic Plan to address problem: Pt undecided @ time of admission
--- NOTE | 2020-11-24 06:32 | Consultation ---
History of Present Illness - Reason for Consult Consult date: 11/23/20 Medical management Requesting physician: ISATU LUNDBERG - History of Present Illness Patient is s/p for 37.5 weeks of with a nonviable fetus. After incisional lesions were removed and a nonviable fetus was delivered. Postop patient is doing well blood glucose levels are ranging from 2 50-3 50 and hemoglobin A1c is 10.4 Patient also has hypertension and preeclampsia patient on IV magnesium otherwise patient is doing well no shortness of breath no chest pain. No fever or chills. Past History Social history: full code. denies: smoking, alcohol abuse, prescription drug abuse, IV drug use Medications and Allergies Allergies Allergy/AdvReac Type Severity Reaction Status Date / Time No Known Allergies Allergy Verified 11/23/20 12:51 Home Medications Medication Instructions Recorded Confirmed Last Taken Type Nitrofurantoin Nolan/M-Cryst 100 mg PO Q12HR #14 capsule 10/06/20 Unknown Rx [Macrobid CAP] Ibuprofen [Motrin 800 MG tab] 800 mg PO TID PRN #30 tablet 11/23/20 Unknown Rx oxyCODONE /ACETAMINOPHEN [Percocet 1 - 2 tab PO Q6HR PRN #20 tablet 11/23/20 Unknown Rx 5/325 mg] Active Meds: Active Medications Acetaminophen (Acetaminophen 500 Mg Tab) 1,000 mg PO Q6H PRN PRN Reason: Fever >100.5/CROW Carboprost Tromethamine (Carboprost Tromethamine 250 Mcg/1 Ml Inj) 250 mcg IM ONCE PRN PRN Reason: Bleeding Dextrose (Dextrose 50% In Water (25gm) 50 Ml Syringe) 50 ml IV Q30MIN PRN; Protocol PRN Reason: Hypoglycemia Diphenhydramine HCl (Diphenhydramine 50 Mg/Ml Vial) 12.5 mg IV Q2H PRN PRN Reason: Itching Diphenoxylate HCl/Atropine (Diphenoxylate/Atropine Tab) 1 tab PO Q6H PRN PRN Reason: Diarrhea Hydromorphone HCl (Hydromorphone 1 Mg/1 Ml Inj) 0.5 mg IV Q4H PRN PRN Reason: breakthrough pain > 7/10 Oxytocin/Sodium Chloride (Pitocin/Ns 30 Unit/500ml) 30 units in 500 mls @ 0 mls/hr IV TITR ELDA; Protocol Lactated Ringer's (Lactated Ringers) 1,000 mls @ 125 mls/hr IV DIRECT ELDA Last Admin: 11/23/20 14:37 Dose: 125 mls/hr Documented by: Magnesium Sulfate (Magnesium Sulfate 40gm/1000ml) 40 gm in 1,000 mls @ 50 mls/hr IV DIRECT ELDA Last Admin: 11/23/20 15:10 Dose: 2 gm/hr, 50 mls/hr Documented by: Cefazolin Sodium 3 gm/ Sodium (Chloride) 100 mls @ 100 mls/30 min IV PREOP NR; Protocol Stop: 11/24/20 06:00 Oxytocin/Sodium Chloride (Pitocin/Ns 30 Unit/500ml) 30 units in 500 mls @ 40 mls/hr IV TITR ELDA; Protocol Cefazolin Sodium (Ancef/Ns 1 Gm/50 Ml) 1 gm in 50 mls @ 100 mls/hr IV Q8H ELDA Stop: 11/24/20 10:29 Ibuprofen (Ibuprofen 800 Mg Tab) 800 mg PO Q6H PRN PRN Reason: Pain, Mild (1-3) Insulin Human Regular (Insulin Regular, Human 100 Units/1 Ml) 0 units SUB-Q Q6H ELDA; Protocol Last Admin: 11/23/20 16:30 Dose: 6 units Documented by: Ketorolac Tromethamine (Ketorolac 30 Mg/1 Ml Inj) 30 mg IV Q6H PRN PRN Reason: Pain, Mild (1-3) Stop: 11/28/20 21:28 Labetalol HCl (Labetalol 100 Mg Tab) 100 mg PO BID [facility] Labetalol HCl (Labetalol 200 Mg Tab) 200 mg PO BID [facility] Magnesium Hydroxide (Magnesium Hydroxide (Mom) Oral Liqd Udc) 30 ml PO QHS PRN PRN Reason: Constip Unrelieved By Senna Misoprostol (Misoprostol 200 Mcg Tab) 800 mcg NV PRN PRN PRN Reason: Bleeding Morphine Sulfate (Morphine 2 Mg/1 Ml Inj) 2 mg IV Q4H PRN PRN Reason: Pain, Moderate (4-6) Nalbuphine HCl (Nalbuphine 10 Mg/1 Ml Inj) 2.5 mg IV Q2H PRN PRN Reason: Itching Naloxone HCl (Naloxone 0.4 Mg/1 Ml Inj) 0.2 mg IV Q2MIN PRN PRN Reason: Res Rate </= 8 or 02 SAT < 92% Naloxone HCl (Naloxone 0.4 Mg/1 Ml Inj) 0.1 mg IV Q2MIN PRN PRN Reason: Res Rate </= 8 or 02 SAT < 92% Ondansetron HCl (Ondansetron 4 Mg/2 Ml Inj) 4 mg IV Q8H PRN PRN Reason: Nausea And Vomiting Oxycodone/Acetaminophen (Oxycodone /Acetaminophen 5-325mg Tab) 2 tab PO Q6H PRN PRN Reason: Pain, Moderate (4-6) Promethazine HCl (Promethazine 25 Mg Tab) 25 mg PO Q6H PRN PRN Reason: Nausea And Vomiting Promethazine HCl (Promethazine 25 Mg Rect Supp) 25 mg NV Q6H PRN PRN Reason: Nausea And Vomiting Senna (Sennosides 8.6 Mg Tab) 17.2 mg PO QHS PRN PRN Reason: Constipation Simethicone (Simethicone 80 Mg Chew Tab) 80 mg PO Q6H PRN PRN Reason: Gas pain Sodium Chloride (Sodium Chloride 0.9% 10 Ml Flush Syringe) 10 ml IV PRN NR Stop: 11/24/20 21:59 Witch Yessica/Glycerin (Witch Yessica/ Glycerin Pad) 1 each TP PRN PRN PRN Reason: Hemorrhoids/cleansing/soothing Exam - Constitutional Vitals: Temp Pulse Resp BP Pulse Ox 97.6 F 86 13 138/71 99 11/23/20 21:35 11/23/20 23:18 11/23/20 22:21 11/23/20 23:18 11/23/20 22:21 General appearance: Present: no acute distress, well-nourished - EENT Eyes: Present: PERRL ENT: hearing intact, clear oral mucosa - Neck Neck: Present: supple, normal ROM - Respiratory Respiratory effort: normal Respiratory: bilateral: CTA - Cardiovascular Heart rate: 78 Rhythm: regular Heart Sounds: Present: S1 & S2. Absent: rub, click - Extremities Extremities: no ischemia, pulses intact, pulses symmetrical, No edema Peripheral Pulses: within normal limits - Abdominal General gastrointestinal: Present: soft, non-tender, non-distended, normal bowel sounds Female genitourinary: Present: normal - Rectal Rectal Exam: deferred - Integumentary Integumentary: Present: clear, warm, dry - Musculoskeletal Musculoskeletal: gait normal, strength equal bilaterally - Psychiatric Psychiatric: appropriate mood/affect, intact judgment & insight - Neurologic Neurologic: CNII-XII intact, moves all extremities Results - Labs CBC & Chem 7: 11/23/20 13:30 11/23/20 13:30 Labs: Abnormal lab results 11/23/20 11/23/20 11/23/20 Range/Units 13:30 13:30 13:30 RDW 15.4 H (13.2-15.2) % Nolan % (Auto) 7.5 H (0.0-7.3) % Seg Neutrophils % 72.0 H (40.0-70.0) % Sodium 128 L (137-145) mmol/L Chloride 92.3 L (98-107) mmol/L Carbon Dioxide 21 L (22-30) mmol/L BUN 5 L (7-17) mg/dL Creat inine 0.4 L (0.6-1.2) mg/dL Glucose 307 H (65-100) mg/dL POC Glucose (70-105) mg/dL Hemoglobin A1c 10.4 H (4-6) % Magnesium (1.7-2.3) mg/dL Albumin 3.8 L (3.9-5) g/dL 11/23/20 11/23/20 11/23/20 Range/Units 16:13 18:02 18:38 RDW (13.2-15.2) % Nolan % (Auto) (0.0-7.3) % Seg Neutrophils % (40.0-70.0) % Sodium (137-145) mmol/L Chloride (98-107) mmol/L Carbon Dioxide (22-30) mmol/L BUN (7-17) mg/dL Creatinine (0.6-1.2) mg/dL Glucose (65-100) mg/dL POC Glucose 274 H 319 H (70-105) mg/dL Hemoglobin A1c (4-6) % Magnesium 3.00 H (1.7-2.3) mg/dL Albumin (3.9-5) g/dL Assessment and Plan - Patient Problems (1) IDDM (insulin dependent diabetes mellitus) Current Visit: Yes Status: Chronic Plan to address problem: Blood glucose levels are high in 300s and A1c is 10.4 Diabetes uncontrolled Patient initiated on Lantus 20 units at nighttime and Humalog before each meal and at nighttime. Patient to be sent home on Lantus and Humalog We will follow the patient and instruct appropriately Dietitian consult (2) Essential hypertension affecting in third trimester Onset Date: ~11/23/20 Current Visit: Yes Status: Chronic Plan to address problem: Continue labetalol and IV magnesium (3) Morbid obesity due to excess calories Current Visit: Yes Status: Chronic Plan to address problem: Needs referral to bariatric surgery as outpatient (4) Hyponatremia Current Visit: Yes Status: Acute Plan to address problem: IV fluids for now Recheck BMP (5) DVT prophylaxis Current Visit: Yes Status: Acute Plan to address problem: On heparin and GI prophylaxis (6) Discharge planning issues Current Visit: Yes Status: Acute Plan to address problem: We will follow the patient tomorrow Dietitian consult Patient to follow-up with PCP regarding control of blood glucose levels Patient to be educated about insulin administration
--- NOTE | 2020-11-24 09:50 | Post Anesthesia Evaluation ---
- Post Anesthesia Evaluation Patient Participated: Yes Airway Patent: Yes Stable Respiratory Function: Yes Nausea/Vomiting: No Temp > 96.8F: Yes Pain Manageable: Yes Adequeate Hydration: Yes Anesthesia Complications: No Block Receding Appropriately: Yes Patient on Ventilator: No
[2020-11-24] MEDS ORDERED: hydrALAZINE 20 MG/1 ML INJ IV SCH (10:00)
[2020-11-24 10:22] LABS: Hematocrit 32.6 % (30.3-42.9); Hemoglobin 10.7 gm/dl (10.1-14.3)
--- NOTE | 2020-11-24 11:26 | Progress Note ---
Assessment and Plan Assessment and plan: #[id number] diabetes mellitus Blood glucose is poorly controlled-Hemoglobin A1c 10.4 She was reportedly on Metformin 500 mg 4 times daily at home Started on Lantus 20 units at bedtime and lispro sliding scale Diabetic diet Needs to follow-up with PCP for blood glucose monitoring #Morbid obesity Diet and exercise #Hypertension Continue current medications #Discharge planning Patient has Medicaid. Can be discharged on Lantus at bedtime and lispro sliding scale Patient will need to follow-up with PCP for blood glucose management History Interval history: Patient seen and examined bedside this morning Blood glucose slightly better on current medications Patient will need to follow-up with her PCP for close monitoring of diabetes Hospitalist Physical - Physical exam Narrative exam: VITAL SIGNS: Reviewed. GENERAL: Awake HEAD: No signs of head trauma. EYES: Pupils are equal. Extraocular motions intact. MOUTH: Oropharynx is normal. NECK: No adenopathy, no JVD. CHEST: Chest with diminished breath sounds bilaterally. No wheezes, rales, or rhonchi. CARDIAC: normal S1 and S2, without murmurs, gallops, or rubs. ABDOMEN: Soft, non tender and non distended. No rebound or guarding, and no masses palpated. Bowel Sounds normal. MUSCULOSKELETAL: No edema NEUROLOGIC EXAM: Alert and oriented x3. No focal neurologic deficits SKIN: No obvious lesions - Constitutional Vitals: Temp Pulse Resp BP Pulse Ox 98.3 F 91 H 18 141/78 96 11/24/20 08:15 11/24/20 11:18 11/24/20 08:15 11/24/20 11:18 11/23/20 22:45 Results - Labs CBC & Chem 7: 11/24/20 09:40 11/23/20 13:30 Labs: Laboratory Last Values WBC 7.2 K/mm3 (4.5-11.0) 11/23/20 13:30 RBC 4.50 M/mm3 (3.65-5.03) 11/23/20 13:30 Hgb 10.7 gm/dl (10.1-14.3) 11/24/20 09:40 Hct 32.6 % (30.3-42.9) 11/24/20 09:40 MCV 84 fl (79-97) 11/23/20 13:30 MCH 28 pg (28-32) 11/23/20 13:30 MCHC 33 % (30-34) 11/23/20 13:30 RDW 15.4 % (13.2-15.2) H 11/23/20 13:30 Plt Count 319 K/mm3 (140-440) 11/23/20 13:30 Lymph % (Auto) 19.7 % (13.4-35.0) 11/23/20 13:30 [place] % (Auto) 7.5 % (0.0-7.3) H 11/23/20 13:30 Eos % (Auto) 0.4 % (0.0-4.3) 11/23/20 13:30 Baso % (Auto) 0.4 % (0.0-1.8) 11/23/20 13:30 Lymph # (Auto) 1.4 K/mm3 (1.2-5.4) 11/23/20 13:30 [place] # (Auto) 0.5 K/mm3 (0.0-0.8) 11/23/20 13:30 Eos # (Auto) 0.0 K/mm3 (0.0-0.4) 11/23/20 13:30 Baso # (Auto) 0.0 K/mm3 (0.0-0.1) 11/23/20 13:30 Seg Neutrophils % 72.0 % (40.0-70.0) H 11/23/20 13:30 Seg Neutrophils # 5.2 K/mm3 (1.8-7.7) 11/23/20 13:30 PT 12.7 Sec. (12.2-14.9) 11/23/20 16:03 INR 0.96 (0.87-1.13) 11/23/20 16:03 APTT 26.2 Sec. (24.2-36.6) 11/23/20 16:03 Sodium 128 mmol/L (137-145) L 11/23/20 13:30 Potassium 4.6 mmol/L (3.6-5.0) 11/23/20 13:30 Chloride 92.3 mmol/L (98-107) L 11/23/20 13:30 Carbon Dioxide 21 mmol/L (22-30) L 11/23/20 13:30 Anion Gap 19 mmol/L 11/23/20 13:30 BUN 5 mg/dL (7-17) L 11/23/20 13:30 Creatinine 0.4 mg/dL (0.6-1.2) L 11/23/20 13:30 Estimated GFR > 60 ml/min 11/23/20 13:30 BUN/Creatinine Ratio 13 % 11/23/20 13:30 Glucose 307 mg/dL (65-100) H 11/23/20 13:30 POC Glucose 306 mg/dL (70-105) H 11/23/20 23:46 Hemoglobin A1c 10.4 % (4-6) H 11/23/20 13:30 Ketones Quantitative Negative (Negative) 11/23/20 16:03 Uric Acid 5.3 mg/dL (3.5-7.6) 11/23/20 13:30 Calcium 9.8 mg/dL (8.4-10.2) 11/23/20 13:30 Magnesium 3.70 mg/dL (1.7-2.3) H 11/24/20 09:40 Total Bilirubin 0.40 mg/dL (0.1-1.2) 11/23/20 13:30 Direct Bilirubin < 0.2 mg/dL (0-0.2) 11/23/20 13:30 Indirect Bilirubin 0.2 mg/dL 11/23/20 13:30 AST 32 units/L (5-40) 11/23/20 13:30 ALT 30 units/L (7-56) 11/23/20 13:30 Alkaline Phosphatase 112 units/L (35-129) 11/23/20 13:30 Total Protein 7.6 g/dL (6.3-8.2) 11/23/20 13:30 Albumin 3.8 g/dL (3.9-5) L 11/23/20 13:30 Albumin/Globulin Ratio 1.0 % 11/23/20 13:30 Urine Color Yellow (Yellow) 11/23/20 Unknown Urine Turbidity Clear (Clear) 11/23/20 Unknown Urine pH 6.0 (5.0-7.0) 11/23/20 Unknown Ur Specific [place] 1.025 (1.003-1.030) 11/23/20 Unknown Urine Protein <15 mg/dl mg/dL (Negative) 11/23/20 Unknown Urine Glucose (UA) >=500 mg/dL (Negative) 11/23/20 Unknown Urine Ketones 80 mg/dL (Negative) 11/23/20 Unknown Urine Blood Sm (Negative) 11/23/20 Unknown Urine Nitrite Neg (Negative) 11/23/20 Unknown Urine Bilirubin Neg (Negative) 11/23/20 Unknown Urine Urobilinogen < 2.0 mg/dL (<2.0) 11/23/20 Unknown Ur Leukocyte Esterase Neg (Negative) 11/23/20 Unknown Urine WBC (Auto) < 1.0 /HPF (0.0-6.0) 11/23/20 Unknown Urine RBC (Auto) < 1.0 /HPF (0.0-6.0) 11/23/20 Unknown U Epithel Cells (Auto) < 1.0 /HPF (0-13.0) 11/23/20 Unknown Urine Mucus Few /HPF 11/23/20 Unknown Urine Opiates Screen Presumptive negative 11/23/20 Unknown Urine Methadone Screen Presumptive negative 11/23/20 Unknown Ur Barbiturates Screen Presumptive negative 11/23/20 Unknown Ur Phencyclidine Scrn Presumptive negative 11/23/20 Unknown Ur Amphetamines Screen Presumptive negative 11/23/20 Unknown U Benzodiazepines Scrn Presumptive negative 11/23/20 Unknown Urine Cocaine Screen Presumptive negative 11/23/20 Unknown U Marijuana (THC) Screen Presumptive negative 11/23/20 Unknown Drugs of Abuse Note Disclamer 11/23/20 Unknown Blood Type A POSITIVE 11/23/20 13:30 Antibody Screen Negative 11/23/20 13:30 Active Medications - Current Medications Current Medications: Generic Name Dose Route Start Last Admin Trade Name Freq PRN Reason Stop Dose Admin Acetaminophen 1,000 mg 11/23/20 21:29 Acetaminophen 500 Mg Tab PO Q6H PRN Fever >100.5/CROW Carboprost Tromethamine 250 mcg 11/23/20 19:37 Carboprost Tromethamine 250 Mcg/1 Ml Inj IM ONCE PRN Bleeding Dextrose 50 ml 11/23/20 16:00 Dextrose 50% In Water (25gm) 50 Ml Syringe IV Q30MIN PRN Hypoglycemia Protocol Diphenhydramine HCl 12.5 mg 11/23/20 19:13 Diphenhydramine 50 Mg/Ml Vial IV Q2H PRN Itching Diphenoxylate HCl/Atropine 1 tab 11/23/20 19:37 Diphenoxylate/Atropine Tab PO Q6H PRN Diarrhea Hydralazine HCl 10 mg 11/24/20 10:00 Hydralazine 20 Mg/1 Ml Inj IV 11/24/20 14:00 ONCE ELDA Hydromorphone HCl 0.5 mg 11/23/20 19:13 Hydromorphone 1 Mg/1 Ml Inj IV Q4H PRN breakthrough pain > 7/10 Oxytocin/Sodium Chloride 30 units in 500 mls @ 0 mls/hr 11/23/20 13:00 Pitocin/Ns 30 Unit/500ml IV TITR ELDA Protocol As Directed Lactated Ringer's 1,000 mls @ 125 mls/hr 11/23/20 14:00 11/24/20 05:15 Lactated Ringers IV 125 mls/hr DIRECT ELDA Administration Magnesium Sulfate 40 gm in 1,000 mls @ 50 mls/hr 11/23/20 14:00 11/23/20 15 :10 Magnesium Sulfate 40gm/1000ml IV 2 gm/hr DIRECT ELDA 50 mls/hr Administration 2 GM/HR Oxytocin/Sodium Chloride 30 units in 500 mls @ 40 mls/hr 11/23/20 22:00 Pitocin/Ns 30 Unit/500ml IV TITR ELDA Protocol Ibuprofen 800 mg 11/24/20 21:39 Ibuprofen 800 Mg Tab PO Q6H PRN Pain, Mild (1-3) Insulin Glargine 20 units 11/24/20 22:00 Insulin Glargine 100 Units/Ml SUB-Q QHS [facility] Insulin Human Lispro 0 unit 11/24/20 07:30 11/24/20 09:27 Insulin Lispro 100 Unit/Ml SUB-Q 4 unit ACHS ELDA Administration Protocol Ketorolac Tromethamine 30 mg 11/23/20 21:29 11/24/20 09:02 Ketorolac 30 Mg/1 Ml Inj IV 11/28/20 21:28 30 mg Q6H PRN Administration Pain, Mild (1-3) Labetalol HCl 100 mg 11/23/20 22:00 11/24/20 09:02 Labetalol 100 Mg Tab PO 100 mg BID ELDA Administration Labetalol HCl 200 mg 11/23/20 22:00 11/24/20 09:02 Labetalol 200 Mg Tab PO 200 mg BID ELDA Administration Magnesium Hydroxide 30 ml 11/23/20 21:29 Magnesium Hydroxide (Mom) Oral Liqd Udc PO QHS PRN Constip Unrelieved By Senna Misoprostol 800 mcg 11/23/20 19:37 Misoprostol 200 Mcg Tab OH PRN PRN Bleeding Morphine Sulfate 2 mg 11/23/20 21:29 Morphine 2 Mg/1 Ml Inj IV Q4H PRN Pain, Moderate (4-6) Nalbuphine HCl 2.5 mg 11/23/20 19:13 Nalbuphine 10 Mg/1 Ml Inj IV Q2H PRN Itching Naloxone HCl 0.2 mg 11/23/20 19:13 Naloxone 0.4 Mg/1 Ml Inj IV Q2MIN PRN Res Rate </= 8 or 02 SAT < 92% Naloxone HCl 0.1 mg 11/23/20 21:26 Naloxone 0.4 Mg/1 Ml Inj IV Q2MIN PRN Res Rate </= 8 or 02 SAT < 92% Ondansetron HCl 4 mg 11/23/20 19:13 Ondansetron 4 Mg/2 Ml Inj IV Q8H PRN Nausea And Vomiting Oxycodone/Acetaminophen 2 tab 11/23/20 21:29 Oxycodone /Acetaminophen 5-325mg Tab PO Q6H PRN Pain, Moderate (4-6) Promethazine HCl 25 mg 11/23/20 19:13 Promethazine 25 Mg Tab PO Q6H PRN Nausea And Vomiting Promethazine HCl 25 mg 11/23/20 19:13 Promethazine 25 Mg Rect Supp OH Q6H PRN Nausea And Vomiting Senna 17.2 mg 11/23/20 21:29 Sennosides 8.6 Mg Tab PO QHS PRN Constipation Simethicone 80 mg 11/23/20 21:29 Simethicone 80 Mg Chew Tab PO Q6H PRN Gas pain Sodium Chloride 10 ml 11/23/20 22:00 Sodium Chloride 0.9% 10 Ml Flush Syringe IV 11/24/20 21:59 PRN NR Witch Yessica/Glycerin 1 each 11/23/20 21:26 Witch [place]/ Glycerin Pad TP PRN PRN Hemorrhoids/cleansing/soothing
[2020-11-24] MEDS: MAGNESIUM SULFATE 40GM/1000ML 40 GM/1,000 ML BAG IV SCH (15:56)
[2020-11-24] MEDS ORDERED: ceFAZolin/NS 1 GM/50 ML 1 GM/50 ML BAG IV NR (17:00)
--- NOTE | 2020-11-24 19:06 | Progress Note ---
Assessment and Plan POC reviewed with pt and RN @BS; Pt to see hospitalist today for DM management. Pt denies CROW, pain, vision changes, and all complaints at this time. Pt with elevated BP's 160's-180's systolic 70's-100 diastolic in the last 30mins; Dr. Harley made aware and Hydralazine 10mg IV ordered. Requested RN to call per protocol with any changes in status - Patient Problems (1) demise Onset Date: ~11/23/20 Current Visit: Yes Status: Acute (2) Diabetes type 2, uncontrolled Onset Date: ~11/23/20 Current Visit: Yes Status: Chronic (3) Essential hypertension affecting in third trimester Onset Date: ~11/23/20 Current Visit: Yes Status: Chronic (4) Morbid obesity due to excess calories Current Visit: Yes Status: Chronic Plan to address problem: POC reviewed with pt to advance diet as tolerated; clear diet with crackers encouraged at this time Subjective - Subjective Date of service: 11/24/20 Principal diagnosis: Repeat C/S; PP Day#1, DM Type2, CHTN, Demise Patient reports: appetite normal, pain well controlled, flatus, other (pt reports she's hungry and asking for regular diet at this time), no dizzy ambulation, no bowel movement, no appetite poor, no pain poorly controlled, no nauseated : Objective - Vital Signs Latest vital signs: Vital Signs Temp Pulse Resp BP BP Pulse Ox 11/24/20 09:30 104 H 161/76 11/24/20 09:25 99 H 180/89 11/24/20 09:22 96 H 183/100 11/24/20 09:00 94 H 161/97 11/24/20 08:30 93 H 145/91 11/24/20 07:59 88 156/84 11/24/20 07:55 89 156/92 11/24/20 07:54 87 154/90 11/24/20 07:30 88 147/81 11/24/20 07:00 83 139/84 11/24/20 06:30 81 125/77 11/24/20 05:59 85 144/89 11/24/20 05:18 84 137/82 11/24/20 04:48 86 140/83 11/24/20 04:18 82 144/84 11/24/20 03:48 85 137/77 11/24/20 03:18 82 135/78 11/24/20 02:48 93 H 134/85 11/24/20 02:20 85 142/66 11/24/20 02:19 86 164/82 11/24/20 01:48 86 132/73 11/24/20 01:18 94 H 127/73 11/24/20 00:48 98 H 149/84 11/24/20 00:18 99 H 129/75 11/24/20 00:00 20 11/23/20 23:48 99 H 143/81 11/23/20 23:18 86 138/71 11/23/20 22:45 91 H 19 145/86 96 11/23/20 22:35 84 18 117/74 97 11/23/20 22:21 88 13 147/83 99 11/23/20 22:05 92 H 120/79 99 11/23/20 21:50 81 106/73 99 11/23/20 21:45 86 20 110/71 99 11/23/20 21:40 84 19 115/73 100 11/23/20 21:35 97.6 F 92 H 20 109/69 98 11/23/20 19:17 109 H 116/57 11/23/20 19:12 106 H 125/67 11/23/20 19:01 117 H 107/55 11/23/20 18:47 103 H 110/59 11/23/20 18:32 129 H 131/63 11/23/20 18:17 136 H 143/88 11/23/20 18:01 123 H 139/94 11/23/20 17:51 134 H 141/87 11/23/20 17:46 125 H 144/87 11/23/20 17:26 110 H 174/100 11/23/20 17:21 139 H 174/100 11/23/20 17:18 130 H 172/99 11/23/20 16:18 120 H 182/91 11/23/20 16:01 122 H 169/99 11/23/20 15:51 118 H 162/96 11/23/20 15:41 127 H 156/91 11/23/20 15:31 123 H 150/91 11/23/20 15:24 136 H 139/87 11/23/20 15:01 120 H 159/99 11/23/20 15:00 92 H 18 189/101 99 11/23/20 14:52 113 H 189/101 11/23/20 14:38 110 H 193/95 11/23/20 14:00 123 H 184/103 11/23/20 13:49 120 H 96 11/23/20 13:44 107 H 98 11/23/20 13:42 108 H 200/107 11/23/20 13:40 126 H 188/106 11/23/20 13:39 125 H 97 11/23/20 13:34 112 H 96 11/23/20 13:29 118 H 98 11/23/20 13:24 129 H 97 11/23/20 13:19 120 H 97 11/23/20 13:14 152 H 96 11/23/20 13:09 135 H 99 11/23/20 13:07 112 H 174/89 11/23/20 13:04 98.2 F 120 H 20 174/89 97 Intake and Output 11/23/20 11/24/20 11/24/20 23:59 07:59 15:59 Intake Total 3100 Output Total 1225 1375 Balance 1875 -1375 Intake: IV 3100 Lactated Ringers 1,000 ml 1000 @ 125 mls/hr IV DIRECT ELDA Rx#:[id number] Output: Urine 1225 1375 Indwelling Catheter 800 1375 Uretheral (Dang) 350 Other: Total, Output Amount 750 200 Estimated Blood Loss 1,000 - Exam Breasts: Present: normal Cardiovascular: Present: Regular rate Lungs: Present: Clear to auscultation, Normal air movement Abdomen: Present: normal appearance, soft, normal bowel sounds Uterus: Present: other (unable to assess d/t obesity) Extremities: Present: normal Deep Tendon Reflex Grade: Normal +2 Incision: Present: normal - Labs Labs: Abnormal lab results 11/23/20 11/23/20 11/23/20 Range/Units 13:30 13:30 13:30 RDW 15.4 H (13.2-15.2) % [place] % (Auto) 7.5 H (0.0-7.3) % Seg Neutrophils % 72.0 H (40.0-70.0) % Sodium 128 L (137-145) mmol/L Chloride 92.3 L (98-107) mmol/L Carbon Dioxide 21 L (22-30) mmol/L BUN 5 L (7-17) mg/dL Creatinine 0.4 L (0.6-1.2) mg/dL Glucose 307 H (65-100) mg/dL POC Glucose (70-105) mg/dL Hemoglobin A1c 10.4 H (4-6) % Magnesium (1.7-2.3) mg/dL Albumin 3.8 L (3.9-5) g/dL 11/23/20 11/23/20 11/23/20 Range/Units 16:13 18:02 18:38 RDW (13.2-15.2) % [place] % (Auto) (0.0-7.3) % Seg Neutrophils % (40.0-70.0) % Sodium (137-145) mmol/L Chloride (98-107) mmol/L Carbon Dioxide (22-30) mmol/L BUN (7-17) mg/dL Creatinine (0.6-1.2) mg/dL Glucose (65-100) mg/dL POC Glucose 274 H 319 H (70-105) mg/dL Hemoglobin A1c (4-6) % Magnesium 3.00 H (1.7-2.3) mg/dL Albumin (3.9-5) g/dL 11/23/20 11/24/20 Range/Units 23:46 00:30 RDW (13.2-15.2) % [place] % (Auto) (0.0-7.3) % Seg Neutrophils % (40.0-70.0) % Sodium (137-145) mmol/L Chloride (98-107) mmol/L Carbon Dioxide (22-30) mmol/L BUN (7-17) mg/dL Creatinine (0.6-1.2) mg/dL Glucose (65-100) mg/dL POC Glucose 306 H (70-105) mg/dL Hemoglobin A1c (4-6) % Magnesium 2.90 H (1.7-2.3) mg/dL Albumin (3.9-5) g/dL
[2020-11-24] MEDS: oxyCODONE /ACETAMINOPHEN 5-325MG TAB PO PRN (19:39)
[2020-11-24] MEDS ORDERED: INSULIN GLARGINE 100 UNITS/ML SUB-Q SCH (22:00)
[2020-11-25] MEDS: oxyCODONE /ACETAMINOPHEN 5-325MG TAB PO PRN ×3 (01:08→18:10)
[2020-11-25] MEDS: IBUPROFEN 800 MG TAB PO PRN ×2 (05:10→12:09)
--- NOTE | 2020-11-25 07:50 | Progress Note ---
Assessment and Plan patient without complaints, encouraged shower and increased activity today. discussed care of incision. H&H 10.7/32.6, b/p's 130-140/80-90's. - Patient Problems (1) delivery delivered Current Visit: Yes Status: Acute Plan to address problem: Continue postop course advance diet and activity d/c home tomorrow if stable (2) demise Onset Date: ~11/23/20 Current Visit: Yes Status: Acute (3) Body mass index 50.0-59.9, adult Current Visit: Yes Status: Chronic (4) Diabetes type 2, uncontrolled Onset Date: ~11/23/20 Current Visit: Yes Status: Chronic Qualifiers: Glycemic state: with hyperglycemia Qualified Code(s): E11.65 - Type 2 diabetes mellitus with hyperglycemia Plan to address problem: Insulin Lantus and sliding scale Continue monitoring (5) Essential hypertension affecting in third trimester Onset Date: ~11/23/20 Current Visit: Yes Status: Chronic Plan to address problem: Continue monitoring Labetalol 300mg PO BID Subjective - Subjective Date of service: 11/25/20 Principal diagnosis: Repeat C/S; PP Day#2, DM Type2, CHTN, Demise Patient reports: appetite normal, voiding normally, pain well controlled, flatus, ambulating normally, no dizzy ambulation, no nauseated : other (demised) Objective - Vital Signs Latest vital signs: Vital Signs Temp Pulse Resp BP BP Pulse Ox 11/25/20 04:30 98.8 F 78 16 141/86 11/24/20 23:55 86 135/82 11/24/20 22:03 84 147/93 11/24/20 21:48 88 146/93 11/24/20 21:33 83 145/89 11/24/20 21:18 86 141/77 11/24/20 21:03 87 139/74 11/24/20 20:49 87 138/72 11/24/20 20:33 86 151/83 11/24/20 20:18 90 147/83 11/24/20 20:04 85 137/76 11/24/20 19:57 98.0 F 20 98 11/24/20 19:49 83 145/80 11/24/20 19:47 81 156/84 11/24/20 19:34 87 154/86 11/24/20 19:18 90 149/86 11/24/20 19:04 93 H 144/87 11/24/20 18:49 99 H 141/85 11/24/20 18:34 90 144/84 11/24/20 18:19 96 H 142/84 11/24/20 18:12 101 H 137/82 11/24/20 17:45 98.7 F 18 11/24/20 16:19 84 153/90 11/24/20 16:04 88 145/90 11/24/20 15:48 91 H 159/90 11/24/20 15:34 88 142/83 11/24/20 15:19 92 H 146/84 11/24/20 15:04 89 160/92 11/24/20 14:49 95 H 159/92 11/24/20 14:34 83 149/91 11/24/20 14:19 90 145/87 11/24/20 14:03 93 H 153/90 11/24/20 13:48 81 138/84 11/24/20 13:34 82 141/83 11/24/20 13:30 18 11/24/20 13:18 85 143/82 11/24/20 13:04 88 138/82 11/24/20 12:49 86 149/75 11/24/20 12:33 87 145/88 11/24/20 12:19 85 137/84 11/24/20 12:04 90 136/89 11/24/20 11:49 88 137/79 11/24/20 11:34 90 140/76 11/24/20 11:18 91 H 141/78 11/24/20 11:04 90 126/76 11/24/20 11:00 16 11/24/20 10:49 96 H 122/73 11/24/20 10:34 86 124/71 11/24/20 10:19 90 132/77 11/24/20 10:04 96 H 133/77 11/24/20 09:49 101 H 144/93 11/24/20 09:30 104 H 161/76 11/24/20 09:25 99 H 180/89 11/24/20 09:22 96 H 183/100 11/24/20 09:00 94 H 161/97 11/24/20 08:30 93 H 145/91 11/24/20 08:15 98.3 F 18 11/24/20 07:59 88 156/84 11/24/20 07:55 89 156/92 11/24/20 07:54 87 154/90 Intake and Output 11/24/20 11/24/20 11/25/20 15:59 23:59 07:59 Intake Total 200 Output Total 750 875 800 Balance -191 -606 -438 Intake: Oral 200 Output: Urine 750 875 800 Indwelling Catheter 750 875 Void 800 Other: Total, Intake Amount 200 Total, Output Amount 200 225 800 # Voids Void 1 - Exam Breasts: Present: normal Cardiovascular: Present: Regular rate Lungs: Present: Normal air movement Abdomen: Present: normal appearance, soft Vulva: both: normal Uterus: Present: normal, firm Extremities: Present: normal Incision: Present: normal, dry, intact - Labs Labs: Abnormal lab results 11/24/20 11/24/20 11/24/20 Range/Units 07:52 09:40 12:04 POC Glucose 227 H 207 H (70-105) mg/dL Magnesium 3.70 H (1.7-2.3) mg/dL 11/24/20 11/24/20 11/24/20 Range/Units 14:12 16:21 18:48 POC Glucose 193 H (70-105) mg/dL Magnesium 4.50 H 3.90 H (1.7-2.3) mg/dL 11/24/20 Range/Units 22:17 POC Glucose 236 H (70-105) mg/dL Magnesium (1.7-2.3) mg/dL
--- NOTE | 2020-11-25 09:14 | Progress Note ---
Assessment and Plan Assessment and plan: #Ngp-[id number] diabetes mellitus Blood glucose is poorly controlled-Hemoglobin A1c 10.4 She was reportedly on Metformin 500 mg 4 times daily at home Increased lantus to 30 units at bedtime. Continue lispro sliding scale Needs to follow-up with PCP for blood glucose monitoring #Morbid obesity Diet and exercise #Hypertension Continue current medications #Discharge planning Patient has Medicaid. Can be discharged on current doses of Lantus at bedtime and lispro sliding scale if medicaid covers this Otherwise can be discharged on novolin 70/30 26 units with breakfast and 20 u nits with dinner. She will follow up with Dr Welsh. Referral has been placed. Patient will need to follow-up with PCP for blood glucose management History Interval history: Patient seen and examined bedside this morning No complaints Patient will need to follow-up with her PCP for close monitoring of diabetes Hospitalist Physical - Physical exam Narrative exam: VITAL SIGNS: Reviewed. GENERAL: Awake HEAD: No signs of head trauma. EYES: Pupils are equal. Extraocular motions intact. MOUTH: Oropharynx is normal. NECK: No adenopathy, no JVD. CHEST: Chest with diminished breath sounds bilaterally. No wheezes, rales, or rhonchi. CARDIAC: normal S1 and S2, without murmurs, gallops, or rubs. ABDOMEN: Soft, non tender and non distended. No rebound or guarding, and no masses palpated. Bowel Sounds normal. MUSCULOSKELETAL: No edema NEUROLOGIC EXAM: Alert and oriented x3. No focal neurologic deficits SKIN: No obvious lesions - Constitutional Vitals: Temp Pulse Resp BP Pulse Ox 98.8 F 78 16 141/86 98 11/25/20 04:30 11/25/20 04:30 11/25/20 04:30 11/25/20 04:30 11/24/20 19:57 Results - Labs CBC & Chem 7: 11/24/20 09:40 11/23/20 13:30 Labs: Laboratory Last Values WBC 7.2 K/mm3 (4.5-11.0) 11/23/20 13:30 RBC 4.50 M/mm3 (3.65-5.03) 11/23/20 13:30 Hgb 10.7 gm/dl (10.1-14.3) 11/24/20 09:40 Hct 32.6 % (30.3-42.9) 11/24/20 09:40 MCV 84 fl (79-97) 11/23/20 13:30 MCH 28 pg (28-32) 11/23/20 13:30 MCHC 33 % (30-34) 11/23/20 13:30 RDW 15.4 % (13.2-15.2) H 11/23/20 13:30 Plt Count 319 K/mm3 (140-440) 11/23/20 13:30 Lymph % (Auto) 19.7 % (13.4-35.0) 11/23/20 13:30 [place] % (Auto) 7.5 % (0.0-7.3) H 11/23/20 13:30 Eos % (Auto) 0.4 % (0.0-4.3) 11/23/20 13:30 Baso % (Auto) 0.4 % (0.0-1.8) 11/23/20 13:30 Lymph # (Auto) 1.4 K/mm3 (1.2-5.4) 11/23/20 13:30 [place] # (Auto) 0.5 K/mm3 (0.0-0.8) 11/23/20 13:30 Eos # (Auto) 0.0 K/mm3 (0.0-0.4) 11/23/20 13:30 Baso # (Auto) 0.0 K/mm3 (0.0-0.1) 11/23/20 13:30 Seg Neutrophils % 72.0 % (40.0-70.0) H 11/23/20 13:30 Seg Neutrophils # 5.2 K/mm3 (1.8-7.7) 11/23/20 13:30 PT 12.7 Sec. (12.2-14.9) 11/23/20 16:03 INR 0.96 (0.87-1.13) 11/23/20 16:03 APTT 26.2 Sec. (24.2-36.6) 11/23/20 16:03 Sodium 128 mmol/L (137-145) L 11/23/20 13:30 Potassium 4.6 mmol/L (3.6-5.0) 11/23/20 13:30 Chloride 92.3 mmol/L (98-107) L 11/23/20 13:30 Carbon Dioxide 21 mmol/L (22-30) L 11/23/20 13:30 Anion Gap 19 mmol/L 11/23/20 13:30 BUN 5 mg/dL (7-17) L 11/23/20 13:30 Creatinine 0.4 mg/dL (0.6-1.2) L 11/23/20 13:30 Estimated GFR > 60 ml/min 11/23/20 13:30 BUN/Creatinine Ratio 13 % 11/23/20 13:30 Glucose 307 mg/dL (65-100) H 11/23/20 13:30 POC Glucose 236 mg/dL (70-105) H 11/24/20 22:17 Hemoglobin A1c 10.4 % (4-6) H 11/23/20 13:30 Ketones Quantitative Negative (Negative) 11/23/20 16:03 Uric Acid 5.3 mg/dL (3.5-7.6) 11/23/20 13:30 Calcium 9.8 mg/dL (8.4-10.2) 11/23/20 13:30 Magnesium 3.90 mg/dL (1.7-2.3) H 11/24/20 18:48 Total Bilirubin 0.40 mg/dL (0.1-1.2) 11/23/20 13:30 Direct Bilirubin < 0.2 mg/dL (0-0.2) 11/23/20 13:30 Indirect Bilirubin 0.2 mg/dL 11/23/20 13:30 AST 32 units/L (5-40) 11/23/20 13:30 ALT 30 units/L (7-56) 11/23/20 13:30 Alkaline Phosphatase 112 units/L (35-129) 11/23/20 13:30 Total Protein 7.6 g/dL (6.3-8.2) 11/23/20 13:30 Albumin 3.8 g/dL (3.9-5) L 11/23/20 13:30 Albumin/Globulin Ratio 1.0 % 11/23/20 13:30 Urine Color Yellow (Yellow) 11/23/20 Unknown Urine Turbidity Clear (Clear) 11/23/20 Unknown Urine pH 6.0 (5.0-7.0) 11/23/20 Unknown Ur Specific [place] 1.025 (1.003-1.030) 11/23/20 Unknown Urine Protein <15 mg/dl mg/dL (Negative) 11/23/20 Unknown Urine Glucose (UA) >=500 mg/dL (Negative) 11/23/20 Unknown Urine Ketones 80 mg/dL (Negative) 11/23/20 Unknown Urine Blood Sm (Negative) 11/23/20 Unknown Urine Nitrite Neg (Negative) 11/23/20 Unknown Urine Bilirubin Neg (Negative) 11/23/20 Unknown Urine Urobilinogen < 2.0 mg/dL (<2.0) 11/23/20 Unknown Ur Leukocyte Esterase Neg (Negative) 11/23/20 Unknown Urine WBC (Auto) < 1.0 /HPF (0.0-6.0) 11/23/20 Unknown Urine RBC (Auto) < 1.0 /HPF (0.0-6.0) 11/23/20 Unknown U Epithel Cells (Auto) < 1.0 /HPF (0-13.0) 11/23/20 Unknown Urine Mucus Few /HPF 11/23/20 Unknown Urine Opiates Screen Presumptive negative 11/23/20 Unknown Urine Methadone Screen Presumptive negative 11/23/20 Unknown Ur Barbiturates Screen Presumptive negative 11/23/20 Unknown Ur Phencyclidine Scrn Presumptive negative 11/23/20 Unknown Ur Amphetamines Screen Presumptive negative 11/23/20 Unknown U Benzodiazepines Scrn Presumptive negative 11/23/20 Unknown Urine Cocaine Screen Presumptive negative 11/23/20 Unknown U Marijuana (THC) Screen Presumptive negative 11/23/20 Unknown Drugs of Abuse Note Disclamer 11/23/20 Unknown Coronavirus (PCR) Negative (Negative) 11/24/20 Unknown Blood Type A POSITIVE 11/23/20 13:30 Antibody Screen Negative 11/23/20 13:30 Active Medications - Current Medications Current Medications: Generic Name Dose Route Start Last Admin Trade Name Freq PRN Reason Stop Dose Admin Acetaminophen 1,000 mg 11/23/20 21:29 Acetaminophen 500 Mg Tab PO Q6H PRN Fever >100.5/CROW Carboprost Tromethamine 250 mcg 11/23/20 19:37 Carboprost Tromethamine 250 Mcg/1 Ml Inj IM ONCE PRN Bleeding Dextrose 50 ml 11/23/20 16:00 Dextrose 50% In Water (25gm) 50 Ml Syringe IV Q30MIN PRN Hypoglycemia Protocol Diphenhydramine HCl 12.5 mg 11/23/20 19:13 Diphenhydramine 50 Mg/Ml Vial IV Q2H PRN Itching Diphenoxylate HCl/Atropine 1 tab 11/23/20 19:37 Diphenoxylate/Atropine Tab PO Q6H PRN Diarrhea Hydromorphone HCl 0.5 mg 11/23/20 19:13 Hydromorphone 1 Mg/1 Ml Inj IV Q4H PRN breakthrough pain > 7/10 Oxytocin/Sodium Chloride 30 units in 500 mls @ 0 mls/hr 11/23/20 13:00 Pitocin/Ns 30 Unit/500ml IV TITR ELDA Protocol As Directed Lactated Ringer's 1,000 mls @ 125 mls/hr 11/23/20 14:00 11/24/20 05:15 Lactated Ringers IV 125 mls/hr DIRECT ELDA Administration Magnesium Sulfate 40 gm in 1,000 mls @ 50 mls/hr 11/23/20 14:00 11/24/20 15:56 Magnesium Sulfate 40gm/1000ml IV 2 gm/hr DIRECT ELDA 50 mls/hr Administration 2 GM/HR Oxytocin/Sodium Chloride 30 units in 500 mls @ 40 mls/hr 11/23/20 22:00 Pitocin/Ns 30 Unit/500ml IV TITR ELDA Protocol Ibuprofen 800 mg 11/24/20 21:39 11/25/20 05:10 Ibuprofen 800 Mg Tab PO 800 mg Q6H PRN Administration Pain, Mild (1-3) Insulin Glargine 30 units 11/25/20 22:00 Insulin Glargine 100 Units/Ml SUB-Q QHS ELDA Insulin Human Lispro 0 unit 11/24/20 07:30 11/24/20 22:28 Insulin Lispro 100 Unit/Ml SUB-Q 4 unit ACHS ELDA Administration Protocol Ketorolac Tromethamine 30 mg 11/23/20 21:29 11/24/20 15:49 Ketorolac 30 Mg/1 Ml Inj IV 11/28/20 21:28 30 mg Q6H PRN Administration Pain, Mild (1-3) Labetalol HCl 100 mg 11/23/20 22:00 11/24/20 22:14 Labetalol 100 Mg Tab PO 100 mg BID ELDA Administration Labetalol HCl 200 mg 11/23/20 22:00 11/24/20 22:14 Labetalol 200 Mg Tab PO 200 mg BID ELDA Administration Magnesium Hydroxide 30 ml 11/23/20 21:29 Magnesium Hydroxide (Mom) Oral Liqd Udc PO QHS PRN Constip Unrelieved By Senna Misoprostol 800 mcg 11/23/20 19:37 Misoprostol 200 Mcg Tab TX PRN PRN Bleeding Morphine Sulfate 2 mg 11/23/20 21:29 Morphine 2 Mg/1 Ml Inj IV Q4H PRN Pain, Moderate (4-6) Nalbuphine HCl 2.5 mg 11/23/20 19:13 Nalbuphine 10 Mg/1 Ml Inj IV Q2H PRN Itching Naloxone HCl 0.2 mg 11/23/20 19:13 Naloxone 0.4 Mg/1 Ml Inj IV Q2MIN PRN Res Rate </= 8 or 02 SAT < 92% Naloxone HCl 0.1 mg 11/23/20 21:26 Naloxone 0.4 Mg/1 Ml Inj IV Q2MIN PRN Res Rate </= 8 or 02 SAT < 92% Ondansetron HCl 4 mg 11/23/20 19:13 Ondansetron 4 Mg/2 Ml Inj IV Q8H PRN Nausea And Vomiting Oxycodone/Acetaminophen 2 tab 11/23/20 21:29 11/25/20 08:22 Oxycodone /Acetaminophen 5-325mg Tab PO 2 tab Q6H PRN Administration Pain, Moderate (4-6) Promethazine HCl 25 mg 11/23/20 19:13 Promethazine 25 Mg Tab PO Q6H PRN Nausea And Vomiting Promethazine HCl 25 mg 11/23/20 19:13 Promethazine 25 Mg Rect Supp [place] Q6H PRN Nausea And Vomiting Senna 17.2 mg 11/23/20 21:29 Sennosides 8.6 Mg Tab PO QHS PRN Constipation Simethicone 80 mg 11/23/20 21:29 Simethicone 80 Mg Chew Tab PO Q6H PRN Gas pain Witch Yessica/Glycerin 1 each 11/23/20 21:26 Witch Yessica/ Glycerin Pad TP PRN PRN Hemorrhoids/cleansing/soothing Nutrition/Malnutrition Assess - Dietary Evaluation Nutrition/Malnutrition Findings: Nutrition Notes Start: 11/24/20 12:13 Freq: Status: Active Protocol: Document 11/24/20 12:13 CHASE (Rec: 11/24/20 12:24 CHASE [id number]) Co-Sign 11/24/20 12:13 MK Nutrition Notes Need for Assessment generated from: MD Order Initial or Follow up Brief Note Current Diagnosis Diabetes,Hypertension Other Pertinent Diagnosis s/p with demise Current Diet Cardiac/Consistent CHO Labs/Tests HgbA1c 10.4% [place] Body Weight (kg) 0 Weight Status Morbidly Obese Subjective/Other Information MD order for uncontrolled DM diet education. Per chart, pt has hx of noncompliance with DM care. Pt reports good appetite and good intakes [employer]. Pt has not received tray, diet ordered for dinner. Pt reports current wt similar to UBW. Pt states she was dx with DM 11 years ago and had received diet education. Pt accepted handout but did not want diet education at time of visit and asked to f/u before her d/c. Food Allergy No Nutrition Intervention Follow-Up By: 11/26/20 Additional Comments F/U for diet education
[2020-11-25] MEDS: INSULIN LISPRO 100 UNIT/ML SUB-Q SCH ×4 (09:50→22:14)
--- NOTE | 2020-11-25 12:47 | Discharge Summary ---
Providers - Providers Date of Admission: 11/23/20 12:17 Date of discharge: 11/25/20 Attending physician: ISATU LUNDBERG 11/23/20 18:55 Consult to Physician [CONS] Urgent Comment: Consulting Provider: MESSI BOLTON Physician Instructions: Reason For Exam: uncontrolled DM, CHTN 11/24/20 06:32 Consult to Dietitian/Nutrition [CONS] Routine Physician Instructions: Diet instructions regarding diabetes and meal plan Reason For Exam: Uncontrolled diabetes Reason for Consult: Pt needs oral supplement Primary care physician: ISATU LUNDBERG Hospitalization Reason for admission: IUFD Delivery: Procedure: repeat low transverse Incision: normal, dry, intact Other procedures: none complications: other (uncontrolled DM and uncontrolled HTN) Discharge diagnosis: intrapartum demise [place] baby: male Hospital course: repeat c/s complicated by htn and uncontrolled DM Condition at discharge: Good Disposition: DC-01 TO HOME OR SELFCARE - Discharge Diagnoses (1) delivery delivered Status: Acute (2) demise Status: Acute (3) Body mass index 50.0-59.9, adult Status: Chronic (4) Diabetes type 2, uncontrolled Status: Chronic Qualifiers: Glycemic state: with hyperglycemia Qualified Code(s): E11.65 - Type 2 d iabetes mellitus with hyperglycemia (5) Essential hypertension affecting in third trimester Status: Chronic Plan - Discharge Medications Prescriptions: Insulin Glargine [Lantus VIAL] 30 unit SUB-Q QHS #3 ml Lispro Insulin [HumaLOG] See Protocol SQ TID #2 vial Labetalol HCl [Labetalol 300mg TAB] 300 mg PO BID #60 tablet Ibuprofen [Motrin 800 MG tab] 800 mg PO TID PRN #30 tablet PRN Reason: Pain oxyCODONE /ACETAMINOPHEN [Percocet 5/325 mg] 1 - 2 tab PO Q6HR PRN #20 tablet PRN Reason: Pain - Provider Discharge Summary Activity: routine, no sex for 6 weeks, no heavy lifting 4 weeks, no strenuous exercise Diet: routine Instructions: routine Additional instructions: [] Smoking cessation referral if applicable(refer to patient education folder for contact #) [] Refer to [facility]'s [facility] Booklet Call your doctor immediately for: * Fever > 100.5 * Heavy vaginal bleeding ( >1 pad per hour) * Severe persistent headache * Shortness of breath * Reddened, hot, painful area to leg or breast * Drainage or odor from incision. * Keep incision clean and dry at all times and follow doctor's instructions regarding bathing/showering - Follow up plan Follow up: GARRETT CORMIER MD [Staff Physician] - 7 Days ISATU LUNDBERG MD [Primary Care Provider] - 7 Days (Please call [phone] to schedule your incision check in 1 week.)
--- NOTE | 2020-11-25 15:45 | Event Note ---
Date: 11/25/20 patient requesting d/c home tomorrow d/t 's dialysis schedule.
[2020-11-25] MEDS ORDERED: INSULIN GLARGINE 100 UNITS/ML SUB-Q SCH (22:00)
[2020-11-26] MEDS: oxyCODONE /ACETAMINOPHEN 5-325MG TAB PO PRN (01:05)
[2020-11-26] MEDS: IBUPROFEN 800 MG TAB PO PRN (05:17)
--- NOTE | 2020-11-26 08:11 | Event Note ---
<TANIKA DAI - Last Filed: 11/26/20 08:08> Date: 11/26/20 (Pt ready to go home.) Pt is doing well. Incision is intact, no s/sx of infection and no drainage noted. Pt is appropriately grieving. Declines [employer] visit. States that she has plenty of help at home and will receive support from her family. Discharge order has already been placed. Pt aware that she will need to come to the office in 1 week for an incision check. <ISATU LUNDBERG - Last Filed: 11/26/20 09:49> Patient sitting in chair at bedside, +BM voiding well no complaints. Incision intact, post op and wound care instructions and precautions given. Pain management strategies reviewed. Appropriate grieving encouraged, she denies history of depresson but states she was given Xanax several years ago. She requests antidepressant at this time. Discssued Rickey 's delivery, she was concerned about his " skin coming off." Explained maceration of skin and other than that no other abnormalities noted. Discussed the importance of BS and BP control and weight loss prior to attempting another . States she does not need anything else at this time and encouraged to call office for any problems or concerns.
[2020-11-26] MEDS: INSULIN LISPRO 100 UNIT/ML SUB-Q SCH ×2 (09:23→12:10)
[2020-11-26] MEDS ORDERED: SERTRALINE 50 MG TAB PO SCH (09:38)
[2020-11-26 13:13] VITALS: BP 154/86
== END 2020-11-26 13:00 | disposition home or self-care (01) | DRG 765 ==
LOC: APU 12:17 → LD 12:18 → OB 11-25 00:37
PROVIDERS: ADMIT Obstetrics & Gynecology; ATTEND Obstetrics & Gynecology
PROC: 10D00Z1 Extraction of Products of Conception, Low, Open Approach (ICD-10-PCS; principal; 2020-11-23)
DX: O36.4XX0 Maternal care for intrauterine death, not applicable or unspecified (principal); O24.12 Pre-existing type 2 diabetes mellitus, in childbirth; E87.1 Hypo-osmolality and hyponatremia; O34.211 Maternal care for low transverse scar from previous cesarean delivery; Z20.822 Contact with and (suspected) exposure to COVID-19; O99.214 Obesity complicating childbirth; O11.4 Pre-existing hypertension with pre-eclampsia, complicating childbirth; E11.9 Type 2 diabetes mellitus without complications; O99.893 Other specified diseases and conditions complicating puerperium; N73.6 Female pelvic peritoneal adhesions (postinfective); Z3A.37 37 weeks gestation of pregnancy; Z37.1 Single stillbirth
CPT/HCPCS: 36415; 76815; 80048; 80076; 80307; 81001; 82010; 82962; 83036; 83735; 84550; 85014; 85018; 85025; 85610; 85730; 86850; 86900; 86901; 88307; G0378; J0360; J0690; J1815; J1885; J2250; J2274; J2370; J2405; J2765; J3010; J3475; J3490; J7120; U0003